=== PATIENT | male | born 1950 | race Caucasian/White ===

== ENCOUNTER 2021-04-22 10:20 | Inpatient (IN) | payer SELFPAY ==
[2021-04-22] VITALS (33 sets, daily range): BP systolic 105–157; BP diastolic 77–114; PULSE 82–106; RESP 11–22; TEMP 36.1–36.4; O2SAT 93–100; BMI 26.3
--- NOTE | ~2021-04-22 | CT_ITS ---
EXAMINATION: CTA chest PE protocol DATE: 04/24/2021 08:18 INDICATION: Shortness of breath, elevated d-dimer.. Abnormal pulmonary perfusion scan TECHNIQUE: Computed tomography angiography (CTA) of the chest was performed with 100 mL Omnipaque-350 intravenous contrast timed to evaluate the pulmonary arteries. Coronal maximum intensity projection 3D-reconstructions were created by the technologist. Automated exposure control and iterative reconst ruction technique were employed. Exam dose: 464.75 mGy-cm total exam DLP. COMPARISON: 04/22/2021 portable AP chest 04/23/2021 pulmonary perfusion scan FINDINGS: There is diagnostic contrast enhancement of the pulmonary arteries and no evidence of bilat eral pulmonary emboli, particularly involving the superior segment of the right lower lobe, with abby tional emboli of the right and left lower lobes. There is cardiomegaly. Coronary atherosclerosis. No pericardial effusion. Moderately large right pleural effusion, mild left pleural effusion. Bilateral compressive atelectasis of the right lower lobe and to a lesser extent left lower lobe. Prominent ascites IMPRESSION: Bilateral pulmonary embolism, involving lower lobes, right greater than left Cardiomegaly, bilateral right greater than left pleural effusions, suggesting congestive heart failur e Prominent ascites Reviewed, dictated and finalized at [facility]. Reviewed, dictated and finalized at location A. IMPRESSION: Bilateral pulmonary embolism, involving lower lobes, right greater than left Cardiomegaly, bilateral right greater than left pleural effusions, suggesting c ongestive heart failure Prominent ascites
--- NOTE | ~2021-04-22 | NM_ITS ---
EXAMINATION: NM pulmonary perfusion DATE: 04/23/2021 09:42 INDICATION: Shortness of breath. Pleural effusion. Elevated d-dimer. TECHNIQUE: 5.3 mCi Tc-99m MAA by intravenous route. Scintigraphic images of the chest were obtained. COMPARISON: Chest radiograph dated 04/22/2021 FINDINGS: Or large perfusion defects with corresponding airspace opacities involving the right middle and lower lobes. There are moderate sized perfusion defects involving the apical posterior and anterior segmen ts of the left upper lobe and the superior segment of the left lower lobe and small perfusion defects at the apical segment of the right upper lobe and the inferior segment of the lingula, all without c orresponding airspace opacities. IMPRESSION: 1. High probability for pulmonary embolism. Reviewed, dictated and finalized at location [facility].
--- NOTE | ~2021-04-22 | XR_ITS ---
XR chest 1V portable DATE: 04/22/2021 11:02 INDICATION: Shortness of breath. Lower extremity edema. History of hypertension. TECHNIQUE: Portable upright AP chest on 04/22/2021 at 1056 hours COMPARISON: None FINDINGS: There is cardiomegaly. Aortic arch calcification. There is pulmonary vascular congestion and redistribution. There is moderately large right pleural ef fusion, including some fluid in the minor fissure. There is infiltrate in the right mid and particula rly right lower lung field and to a lesser extent left lower lung. Differential diagnosis for the inf iltrates include pulmonary edema, pneumonia. Lung mass can't be excluded on the right. Diffuse osteopenia. Osteoarthritic change at the glenohumeral joints. IMPRESSION: Cardiomegaly, congestive changes including moderately large right pleural effusion Bilateral infiltrates, particularly in the right mid and lower lung zones; differential diagnosis inc ludes pulmonary edema, pneumonia. Pulmonary mass lesion is not excluded. Reviewed, dictated and finalized at location A. IMPRESSION: Cardiomegaly, congestive changes including moderately large right p leural effusion Bilateral infiltrates, particularly in the right mid and lower lung zones; diff erential diagnosis includes pulmonary edema, pneumonia. Pulmonary mass lesion i s not excluded.
--- NOTE | ~2021-04-22 | XR_ITS ---
XR chest 2V DATE: 04/24/2021 08:29 INDICATION: Congestive heart failure, pulmonary embolism TECHNIQUE: PA and lateral views COMPARISON: 05/04/2021 CTA chest 04/22/2021 portable AP chest FINDINGS: Cardiomegaly. Aortic calcification and mild unfolding. Pulmonary vascular redistribution suggests mild pulmonary venous hypertension. Moderate right pleural effusion. There is infiltrate and/atelectasis in the right mid and both lower lung zones, right greater than le ft. Osteoarthritic changes at the glenohumeral joints. Diffuse osteopenia. IMPRESSION: Cardiomegaly, mild pulmonary vascular congestion, moderately large right pleural effusion and bilateral right greater than left infiltrates; little interval change since 04/22/2021 Reviewed, dictated and finalized at location A. IMPRESSION: Cardiomegaly, mild pulmonary vascular congestion, moderately large right pleural effusion and bilateral right greater than left infiltrates; littl e interval change since 04/22/2021
--- NOTE | ~2021-04-22 | US_ITS ---
EXAMINATION: US venous doppler [facility] DATE: 04/22/2021 14:34 INDICATION: Lower limb edema. TECHNIQUE: Grayscale ultrasound images without and with compression and Doppler ultrasound images of the bilateral lower extremity veins were obtained. COMPARISON: None. FINDINGS: The visualized portions of right common femoral vein, profunda (deep) femoral vein, femoral vein, pop liteal vein, peroneal veins, posterior tibial veins, and greater saphenous vein outflow are patent. The visualized portions of left common femoral vein, profunda femoral vein, femoral vein, popliteal v ein, peroneal veins, posterior tibial veins, and greater saphenous vein outflow are patent. IMPRESSION: 1. No deep venous thrombosis. Reviewed, dictated and finalized at location A.
--- NOTE | ~2021-04-22 | XR_ITS ---
EXAMINATION: [id number] DATE: 04/22/2021 14:33 INDICATION: Right pleural effusion status post thoracentesis. TECHNIQUE: Frontal and lateral views of the chest were obtained. COMPARISON: Chest single view at 10:[address] abdomen and pelvis 04/22/2021. FINDINGS: There are moderate-sized right and small left pleural effusions. There are airspace opaciti es in right mid and lower lung zones and at left lung base, likely atelectasis. Calcified bilateral l ferdinand nodules are consistent with old granulomatous disease. No pneumothorax. Cardiomegaly is noted. IMPRESSION: 1. Moderate-sized right and small left pleural effusions. 2. Cardiomegaly. Reviewed, dictated and finalized at location A.
--- NOTE | ~2021-04-22 | US_ITS ---
EXAMINATION: US paracentesis abd w/image DATE: 04/22/2021 14:54 INDICATION: Ascites. TECHNIQUE: The procedure and its risks, benefits, and alternatives were discussed with the patient. P otential risks discussed included bleeding and infection. The skin was prepped and draped in sterile fashion. 1% lidocaine was used for local anesthesia. Under ultrasound guidance, a 5 Fr catheter with trochar was advanced into the ascites in the left lower quadrant. Fluid was aspirated. The catheter w as removed, and a dressing was applied. There were no immediate complications. FINDINGS: Ultrasound images demonstrate ascites and the catheter within the fluid. IMPRESSION: 1. Successful ultrasound-guided paracentesis yielding 4000 mL of clear, yellow fluid. Reviewed, dictated and finalized at location A.
--- NOTE | ~2021-04-22 | US_ITS ---
EXAMINATION: US thoracentesis DATE: 04/22/2021 14:54 INDICATION: pleural effusion TECHNIQUE: The procedure and its risks, benefits, and alternatives were discussed with the patient. P otential risks discussed included bleeding, infection, and pneumothorax. The patient understood the r isks and agreed to proceed. The skin was prepped and draped in sterile fashion. 1% lidocaine was used for local anesthesia. Under ultrasound guidance, a 5 Fr catheter with trochar was advanced into the right pleural effusion. Fluid was aspirated. The catheter was removed, and a dressing was applied. Th ere were no immediate complications. FINDINGS: Ultrasound images demonstrate a right pleural effusion and the catheter within the fluid. IMPRESSION: 1. Successful ultrasound-guided thoracentesis yielding 1000 mL of clear, yellow fluid. Reviewed, dictated and finalized at location A. IMPRESSION: 1. Successful ultrasound-guided thoracentesis yielding 1000 mL of clear, yello w fluid.
--- NOTE | ~2021-04-22 | CT_ITS ---
EXAMINATION: CT abdomen pelvis wo con DATE: 04/22/2021 12:09 INDICATION: Flank pain. Fluid retention. TECHNIQUE: Computed tomography (CT) of the abdomen and pelvis was performed without intravenous contr ast. Automated exposure control and iterative reconstruction technique were employed. Exam dose: 118 4.05 mGy-cm total exam DLP. COMPARISON: None. FINDINGS: Cardiomegaly. There is extensive coronary artery calcification. There is calcification at t he aortic valve. There is moderately large right pleural effusion with prominent compressive atelectasis of the right lower lobe. There is mild left pleural effusion and mild atelectasis in the left lower lobe. There is very prominent ascites. There is suggestion of surface nodularity of liver but there is cons iderable streak artifact from the upper extremities overlying the abdomen, limiting soft tissue detai l. No obvious space-occupying mass lesion of the liver, spleen, pancreas, and adrenal glands is noted on this limited noncontrast examination. Multiple bilateral renal cysts are noted, measuring up to 4.3 cm on the right 4.9 cm on the left. No ureteral calculus or hydroureteronephrosis. There is suggestion of an up to 2.5 cm wide saccular aneurysm of the infrarenal abdominal aorta. There is a prominent amount of fecal material in the colon. No bowel obstruction or intraperitoneal f ree air is detected. There is extensive subcutaneous edema of the abdominal and pelvic lloyd. No suspicious osteolytic or osteoblastic lesions are noted. IMPRESSION: Bilateral pleural effusions, moderately large on the right, mild on the left, with assoc iated compressive atelectasis involving particularly right lower lobe Cardiomegaly Edema of the abdominal and pelvic lloyd Severe ascites Suggestion of hepatic surface nodularity, cirrhosis; examination is limited by artifact from the uppe r extremities and lack of IV contrast material Bilateral renal cysts Probable 2.5 cm wide saccular infrarenal abdominal aortic aneurysm Reviewed, dictated and finalized at [facility]. Reviewed, dictated and finalized at location A. IMPRESSION: Bilateral pleural effusions, moderately large on the right, mild o n the left, with associated compressive atelectasis involving particularly righ t lower lobe Cardiomegaly Edema of the abdominal and pelvic lloyd Severe ascites Suggestion of hepatic surface nodularity, cirrhosis; examination is limited by artifact from the upper extremities and lack of IV contrast material Bilateral renal cysts Probable 2.5 cm wide saccular infrarenal abdominal aortic aneurysm
--- NOTE | ~2021-04-22 | US_ITS ---
US abdomen limited DATE: 04/24/2021 08:33 INDICATION: Ascites TECHNIQUE: Real-time imaging of liver, pancreas, gallbladder areas COMPARISON: 04/22/2021 CT abdomen pelvis FINDINGS: Prominent ascites is noted. Surface nodularity of the liver suggests cirrhosis. There is pulsatile portal venous waveform with flow reversal, likely secondary to cirrhosis with vasc ular arterioportal shunting; other less likely causes include tricuspid regurgitation, right-sided co ngestive heart failure No gallstones are evident. The common bile duct measures 4 mm, normal. Negative sonographic Bryan's sign. Approximately 3 x 3.5 cm upper pole right renal cyst. IMPRESSION: Cirrhosis and prominent ascites Reviewed, dictated and finalized at [facility]. Reviewed, dictated and finalized at location A.
--- NOTE | 2021-04-22 10:36 | ECG_ITS ---
Measurements Intervals [place] Rate: 97 P: 27 WV: 170 QRS: -80 QRSD: 142 T: 99 QT: 379 QTc: 484 Interpretive Statements SINUS OR ECTOPIC ATRIAL RHYTHM VENTRICULAR BIGEMINY LEFT BUNDLE BRANCH BLOCK BASELINE WANDER- V5-V6 ABNORMAL ECG Electronically Signed On 04-22-2021 10:57:48 CDT by Neftali German D.O.
[2021-04-22 11:04] LABS: Basophils Absolute Auto 0.1 K/mm3 (0.0-0.1); Basophils Percent Auto 1.3 % (0.2-1.2); Eosinophils Absolute Auto 0.1 K/mm3 (0-0.3); Eosinophils Percent Auto 1.3 % (0-4.4); Hematocrit 50.6 % (42.0-52.0); Hemoglobin 17.2 g/dL (14.0-18.0); Immature Granulocyte Absolute 0.02 K/mm3 (0.00-0.031); Immature Granulocyte Percent A 0.3 % (0-0.5); Lymphocytes Absolute Auto 1.14 K/mm3 (0.9-3.2); Lymphocytes Percent Auto 16.5 % (18.3-44.2); Mean Corpuscular Hemoglobin 34.1 pg (26-34); Mean Corpuscular Volume 100.4 fl (80-100); Mean Platelet Volume 11.1 fl (7.4-10.4); Monocytes Absolute Auto 0.8 K/mm3 (0.1-0.6); Monocytes Percent Auto 11.8 % (2.6-8.5); Neutrophils Absolute Auto 4.7 K/mm3 (1.3-6.7); Neutrophils Percent Auto 68.8 % (45.5-73.1); Platelet Count Result 156 k/mm3 (150-375); Red Blood Count 5.04 M/mm3 (4.6-6.20); Red Cell Distribution Width 19.8 % (11.5-14.5); White Blood Count 6.9 K/mm3 (4.5-10.0)
[2021-04-22 11:16] LABS: INR 1.1; Prothrombin Time 14.1 Seconds (11.1-14.7)
[2021-04-22 11:18] LABS: Alanine Aminotransferase 19 U/L (4-50); Albumin Level 4.5 g/dL (3.5-5.1); Alkaline Phosphatase 140 U/L (38-126); Anion Gap 11 mmol/L (8-16); Aspartate Amino Transferase 57 U/L (17-59); Bilirubin,Total 2.9 mg/dL (0.2-1.3); Blood Urea Nitrogen 39 mg/dL (9-20); Calcium 9.1 mg/dL (8.4-10.2); Carbon Dioxide 23 mmol/L (22-30); Chloride 103 mmol/L (98-107); Estimated CRCL calculation 48 ml/min; Estimated Glomerular Filt Rate 54; Glucose 115 mg/dL (65-110); Potassium 4.6 mmol/L (3.4-5.0); Sodium 137 mmol/L (137-145)
[2021-04-22 11:29] LABS: NT Pro B Type Natriuretic Pept 22500 pg/mL (5-100); Troponin I 0.035 ng/mL (0.000-0.034)
[2021-04-22 11:32] LABS: D Dimer 3.86 ug/mL (<0.48)
[2021-04-22 11:58] LABS: Lactic Acid Reflex 2.4 mmol/L (0.7-2.1)
--- NOTE | 2021-04-22 12:58 | ED.GENADULT ---
HPI - General Adult General Chief complaint: Shortness of Breath/Dyspnea Stated complaint: fluid retention/sob Time Seen by Provider: 04/22/21 10:36 Source: patient Mode of arrival: ambulatory Limitations: no limitations History of Present Illness HPI narrative: 71-year-old with a history of hypertension, CHF was sent from his primary doctor's office with shortness of breath, leg swelling for past few weeks. Patient states that he has seen Dr. Morales for the first time and he was later referred him to the ER. He denied any chest pain, fever or chills he denies any alcohol abuse or hepatitis in the past. Onset (ago): week(s) Location: lower extremity (Swelling) Pain Consistency: constant Relieving factors: none Associated symptoms: shortness of breath Treatments prior to arrival: none Related Data Home Medications Medication Instructions Recorded Confirmed furosemide 80 mg tablet 80 mg PO QAM 04/22/21 Allergies Allergy/AdvReac Type Severity Reaction Status Date / Time Iodinated Contrast Media Allergy Hypertensio Verified 04/22/21 10:56 n Review of Systems Review of Systems: All systems reviewed & are unremarkable except as noted in HPI and below Constitutional: Constitutional: Reports no additional constitutional complaints Eyes: Eyes: Reports no additional eye complaints ENT: Reports system reviewed and no additional complaints, except as documented Cardiovascular: Cardiovascular: Reports as per HPI Respiratory: Respiratory: Reports as per HPI Gastrointestinal: Gastrointestinal: Reports no additional gastrointestinal complaints Genitourinary: Genitourinary: Reports no additional male genitourinary complaints Musculoskeletal: Musculoskeletal: Reports as per HPI Neurologic: Reports system reviewed and no additional complaints, except as documented Psychiatric: Psychiatric: Reports no additional psychiatric complaints Endocrine: Endocrine: Reports no additional endocrine complaints [facility] Past Medical History Medical History Allergies Hypertension Surgical History Surgical History H/O hernia repair (2) Family History Family History Father Cancer Diabetes mellitus Mother Cancer Heart disease Sibling Cancer Grandparent Cancer Social History Social History Smoking status: Never smoker Alcohol intake: never Substance use: never Exam Narrative: GENERAL: Ill-appearing, well-nourished, and in no acute distress. HEAD: Normocephalic, atraumatic. EYES: PERRLA and EOMI. ENT: Nares clear, no rhinorrhea or epistaxis. Mucous membranes moist. NECK: Supple. CHEST: Decreased air entry both lung kiser more so on the right. No wheeze HEART: Regular rate and rhythm. No murmur heard. Normal peripheral pulses. ABDOMEN: Soft, distended as umbilical hernia. EXTREMITIES: Normal range of motion. 3+ edema bilateral SKIN: Warm, dry, no rash. NEURO: No focal deficits. Alert and oriented x3. PSYCH: Normal mood and affect. Course Course Emergency Course: Patient comfortably lying on bed with no discomfort informed him about his lab work, CT findings. Discussed with hospitalist and cardiology. Will admit him to the hospital get thoracentesis and paracentesis. Patient agreeable with plan. Vital Signs Vital signs: Vital Signs Temperature 36.4 C 04/22/21 10:36 Pulse Rate 96 04/22/21 10:36 Respiratory Rate 20 04/22/21 10:36 Blood Pressure 157/114 H 04/22/21 10:36 Pulse Oximetry 99 04/22/21 10:36 Temperature 36.4 C 04/22/21 10:36 Pulse Rate 98 04/22/21 11:01 Respiratory Rate 15 04/22/21 11:01 Blood Pressure 129/108 H 04/22/21 11:01 Pulse Oximetry 100 04/22/21 11:00 Medical Decision Making Differential Diagnosis Differential Diagn
[2021-04-22 14:27] LABS: pH Pleural Fluid 7.467 (7.210-7.500)
[2021-04-22 14:39] LABS: Reflex Lactic Acid Yes or No Add Lactic
--- NOTE | 2021-04-22 14:54 | PM.IMHP ---
H&P: HPI History of Present Illness Date/Time: 04/22/21 14:54 this is a 71-year-old male patient who went to Dr. Severino's office today to establish care and review labs. The patient stated that he was short of breath with exertion and that he had a lot of water weight on him. That his legs swelled up and he just did have any energy. The patient has no previous history of heart disease or congestive heart failure. The patient stated that he is on a water pill any only takes it when he feels as though he needs it. He took it yesterday. Patient has been having problems for the last few weeks with the swelling and shortness of breath. The patient was referred to the emergency room by his primary care doctor. His venous Doppler was negative for any deep vein thrombosis. Chest x-ray was read as moderate size right and small left pleural effusions. Cardiomegaly. Abdominal pelvis CT was read as severe ascites. Edema of the abdominal and pelvic lloyd. Cardiomegaly. Bilateral pleural effusions, moderately large on the right mild on the left with associated compressive atelectasis falling particularly right lower lobe. The patient denies any alcohol abuse or hepatitis in the past. He has no known liver disease. The patient stated that he he has white coat syndrome and that his blood pressures typically only elevated when he comes to the office or the hospital. He does not take medication for his blood pressure. His D-dimer was found to be 3.86. Troponin 0.035. BNP 33744. Lactic acid 2.4. Total bilirubin 2.9. The patient was given Lasix IV push in the emergency room. The patient was admitted to observation status on the date of service of 04/22/2021. Chief Complaint: Weakness and shortness of breath Review of Systems Review of Systems: All systems reviewed & are unremarkable except as noted in HPI and below Constitutional: Constitutional: Reports as per HPI and Reports no additional constitutional complaints Eyes: Eyes: Reports as per HPI and Reports no additional eye complaints ENT: Reports system reviewed and no additional complaints, except as documented and Reports Normal hearing present Cardiovascular: Cardiovascular: Reports no additional cardiovascular complaints Respiratory: Respiratory: Reports no additional respiratory complaints and Reports no additional respiratory complaints Gastrointestinal: Gastrointestinal: Reports as per HPI and Reports no additional gastrointestinal complaints Musculoskeletal: Musculoskeletal: Reports no additional musculoskeletal complaints Integumentary/Breasts: Skin/Breast: Reports system reviewed and no additional complaints, except as docu and Reports as per HPI Neurologic: Reports system reviewed and no additional complaints, except as documented, Reports as per HPI and Reports Normal hearing present Psychiatric: Psychiatric: Reports no additional psychiatric complaints and Reports as per HPI Endocrine: Endocrine: Reports no additional endocrine complaints Hematologic/Lymphatic: Hematologic/Lymphatic: Reports no additional hematologic/lymphatic complaints Allergic/Immunologic: Allergic/Immunologic: Reports no additional allergic/immunologic complaints [facility] Past Medical History Medical History Allergies Hypertension Surgical History Surgical History H/O hernia repair (2) Family History Family History (Updated 04/22/21 @ 15:15 by Estefania Ruff NP) Father Cancer Bladder cancer Diabetes mellitus Mother Cancer Breast cancer Heart disease Sibling Carcinoma of colon Grandparent Cancer Social History Social History (Updated 04/22/21 @ 15:16 by Estefania Ruff NP) Social History: The patient lives home alone and his brother visits him a most every day. He is single never and does not have any children. 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
[2021-04-22] MEDS: FUROSEMIDE INJ 40 MG/4 ML VIAL IV PUSH ×2 (14:57→23:36)
[2021-04-22 15:33] LABS: Lactic Acid 1.9 mmol/L (0.7-2.1)
[2021-04-22 15:34] LABS: Bilirubin,Total 3.1 mg/dL (0.2-1.3); Cholesterol 221 mg/dL (0-200); Triglycerides 169 mg/dL (<150)
[2021-04-22 16:18] LABS: Troponin I 0.027 ng/mL (0.000-0.034)
[2021-04-22 16:29] LABS: Appearance Peritoneal Fluid Hazy (Clear); Color Peritoneal Fluid Yellow (Colorless); Lymphocytes Peritoneal Fluid 38 %; Neutrophils Peritoneal Fluid 14 % (0-25); Nucleated Cells Peritoneal Flu 155 /uL (0-500); RBC Peritoneal Fluid 2065 /uL (0-100000); Source Peritoneal Fluid Peritoneal Fluid
[2021-04-22 16:30] LABS: Macrophages Peritoneal Fluid 15 %; Mesothelial Cells Peritoneal Fluid 3 %; Monocytes Peritoneal Fluid 30 %
[2021-04-22 17:18] LABS: Appearance Pleural Fluid Hazy (Clear); Color Pleural Fluid Yellow (Colorless); Lymphocytes Pleural Fluid 52 %; Macrophages Pleural Fluid 1 %; Monocytes Pleural Fluid 44 %; Neutrophils Pleural Fluid 3 % (0-25); Nucleated Cell Pleural Fluid 116 /uL (0-1000); Pleural fluid source Pleural fluid; RBC Pleural Fluid 48 /uL (0-0)
--- NOTE | 2021-04-22 19:30 | PC.NURSE ---
Assumed care of pt at this time. Pt alert and upright on stretcher, no requests. Pt states he is feeling much better than when he arrived. Pt updated on POC.
[2021-04-22 20:40] LABS: Albumin Level 4.9 g/dL (3.5-5.1)
[2021-04-22 20:54] LABS: Troponin I 0.034 ng/mL (0.000-0.034)
--- NOTE | 2021-04-22 22:24 | ADMGEN ---
This patient, Biju Gimenez, was admitted to Medical Room 252-. Patient/family oriented to hospital policies and general routines including ID bracelet, bed and alarms, visiting hours, pain management, procedures, bathroom and other care routines, personal items, smoking policy, room service/diet, and visiting hours. Information on how to activate the Rapid Response Team has been discussed. Patient/Family are encouraged to report perceived risks to care and to ask questions if they do not understand what they are told or what they should do.
[2021-04-23] VITALS (10 sets, daily range): BP systolic 100–120; BP diastolic 61–83; PULSE 76–100; RESP 16–22; TEMP 36.1–36.8; O2SAT 95–100
[2021-04-23 05:38] LABS: Basophils Absolute Auto 0.1 K/mm3 (0.0-0.1); Basophils Percent Auto 1.5 % (0.2-1.2); Eosinophils Absolute Auto 0.1 K/mm3 (0-0.3); Hematocrit 42.4 % (42.0-52.0); Hemoglobin 14.7 g/dL (14.0-18.0); Immature Granulocyte Absolute 0.02 K/mm3 (0.00-0.031); Immature Granulocyte Percent A 0.4 % (0-0.5); Lymphocytes Absolute Auto 0.83 K/mm3 (0.9-3.2); Lymphocytes Percent Auto 15.3 % (18.3-44.2); Mean Corpuscular HGB Conc 34.7 g/dl (32-36); Mean Corpuscular Hemoglobin 33.9 pg (26-34); Mean Corpuscular Volume 97.7 fl (80-100); Mean Platelet Volume 10.3 fl (7.4-10.4); Monocytes Absolute Auto 0.8 K/mm3 (0.1-0.6); Monocytes Percent Auto 15.2 % (2.6-8.5); Neutrophils Absolute Auto 3.6 K/mm3 (1.3-6.7); Neutrophils Percent Auto 65.6 % (45.5-73.1); Platelet Count Result 107 k/mm3 (150-375); Red Blood Count 4.34 M/mm3 (4.6-6.20); Red Cell Distribution Width 18.5 % (11.5-14.5); White Blood Count 5.4 K/mm3 (4.5-10.0)
[2021-04-23 05:53] LABS: Alanine Aminotransferase 13 U/L (4-50); Albumin Level 3.3 g/dL (3.5-5.1); Alkaline Phosphatase 98 U/L (38-126); Anion Gap 5 mmol/L (8-16); Aspartate Amino Transferase 34 U/L (17-59); Bilirubin,Total 2.7 mg/dL (0.2-1.3); Blood Urea Nitrogen 38 mg/dL (9-20); Calcium 8.7 mg/dL (8.4-10.2); Carbon Dioxide 29 mmol/L (22-30); Chloride 103 mmol/L (98-107); Estimated CRCL calculation 49 ml/min; Estimated Glomerular Filt Rate 54; Glucose 81 mg/dL (65-110); Lipase 90 U/L (23-300); Magnesium 2.3 mg/dL (1.6-2.3); Potassium 3.8 mmol/L (3.4-5.0); Sodium 137 mmol/L (137-145)
--- NOTE | 2021-04-23 06:00 | ECHO_ITS ---
Patient Info Name: Biju Gimenez Age: 71 years : 1950 Gender: Male Ht: 71 in Wt: 188 lbs BSA: 2.08 m2 HR: 98 bpm BP: 102 / 61 mmHg Heart Rhythm: Sinus Rhythm Technical Quality: Excellent Exam Date: 04/23/2021 1:39 PM Exam Location: [facility] Card Pulmonary Patient Status: Inpatient Admit Date: 04/23/2021 Staff Ordering Physician: Oscar Greene MD Instrumentation Manager: Wilma Adame RDCS Attending Provider: Luis Irene MD Exam Type: CA echo dop color flow w con Study Info Indications - chf Complete two-dimensional, color flow and Doppler transthoracic echocardiogram is performed with contrast to opacify the left ventricle and to improve the deliniation of the left ventricle endocardial borders. Contrast/Agitated Saline Contrast/Ag. Saline: Definity Amount: 1.00 ml Administered By: Marion Arreguin RN Existing IV Access: Yes IV Access Condition: patent with no signs of infiltration Summary 1. Left ventricular chamber dimension is mildly enlarged. 2. Left ventricular systolic function is severely reduced, estimated at 20-25%. 3. There is mildly increased left ventricular wall thickness. 4. The left ventricular diastolic function is grade III diastolic dysfunction. 5. The apical septum, apical inferior wall, basal inferolateral wall, and mid inferolateral wall are akinetic. 6. The anterior wall, anterolateral wall, anteroseptal wall, basal inferior wall, mid inferior wall, basal inferoseptal, and mid inferoseptal are hypokinetic. 7. The apical cap is dyskinetic. 8. Right ventricular chamber dimension is severely enlarged. 9. Right ventricular systolic function is reduced. 10. Left atrial chamber dimension is moderately enlarged. 11. Right atrial chamber dimension is severely enlarged. 12. There is mild aortic valve calcification. 13. There is moderate mitral valve regurgitation. 14. The mitral valve annulus is mildly calcified. 15. There is moderate to severe tricuspid valve regurgitation. 16. Moderate pulmonary hypertension, estimated pulmonary arterial systolic pressure is 52 mmHg. 17. There is mild pulmonic regurgitation. 18. D shaped septum in both systole and diastole consistent with RV pressure and volume overload. Left Ventricle Left ventricular chamber dimension is mildly enlarged. Left ventricular systolic function is severely reduced, estimated at 20-25%. There is mildly increased left ventricular wall thickness. The left ventricular diastolic function is grade III diastolic dysfunction. The apical septum, apical inferior wall, basal inferolateral wall, and mid inferolateral wall are akinetic. The anterior wall, anterolateral wall, anteroseptal wall, basal inferior wall, mid inferior wall, basal inferoseptal, and mid inferoseptal are hypokinetic. The apical cap is dyskinetic. Right Ventricle Right ventricular chamber dimension is severely enlarged. Right ventricular systolic function is reduced. Left Atria Left atrial chamber dimension is moderately enlarged. Right Atria Right atrial chamber dimension is severely enlarged. Atrial Septum Intact interatrial septum visualized by color flow imaging. Aortic Valve The aortic valve is trileaflet. There is moderate aortic valve sclerosis. There is no aortic valve stenosis. There is trace aortic valve regurgitation. There is mild aortic valve calcification. Pulmonic Valve The pulmonic valve is normal. There is no pulmonic valve stenosis.
[2021-04-23 06:38] LABS: Hepatitis B Surface Antigen Negative (Negative)
[2021-04-23 06:44] LABS: HAV RESULT Negative (Negative); Hepatitis B Core IgM Result Negative (Negative)
[2021-04-23 06:56] LABS: Hepatitis C Virus Antibody Negative (Negative)
--- NOTE | 2021-04-23 09:01 | PM.CNCAR ---
Assessment and Plan Assessment and plan (1) Congestive heart failure: Qualifiers: Heart failure chronicity: acute Heart failure type: unspecified Qualified Code(s): I50.9 - Heart failure, unspecified Code(s): I50.9 - Heart failure, unspecified Status: Acute Assessment and Plan: New onset and likely systolic in etiology. 2D echocardiogram with Doppler is ordered and will be reviewed. Will initiate low-dose metoprolol succinate 12.5 mg p.o. daily. He does not have much blood pressure work with though. Presumably he will have a reduced ejection fraction. In which case, I would like to add Entresto this will be dependent on his blood pressure. Furosemide 40 mg IV q.12 hours. Potassium chloride 40 mEq p.o. x1 for potassium supplementation today will also be provided. Aspirin 81 mg p.o. daily for presumed CAD. Low-salt diet, intake and outputs to be monitored as well as daily weights. Repeat CXR tomorrow. Will check a ferritin level also (2) Hypertension: Code(s): I10 - Essential (primary) hypertension Status: Acute Assessment and Plan: Currently at goal (3) Ascites: Qualifiers: Ascites type: other type Qualified Code(s): R18.8 - Other ascites Code(s): R18.8 - Other ascites Status: Acute Assessment and Plan: Secondary to heart failure status post paracentesis (4) Abnormal EKG: Code(s): R94.31 - Abnormal electrocardiogram [ECG] [EKG] Status: Acute Assessment and Plan: Concerning for previous inferior myocardial infarction. He will eventually need an ischemic evaluation depending on the above tests. If cardiomyopathy is noted, likely proceed directly to a coronary angiogram History of Present Illness History of Present Illness Consult date/time: 04/23/21 09:01 Requesting physician: Oscar Greene MD Reason For Visit: CHF, Ascites Narrative: Date of service 04/23/2021 Reason for consultation: CHF Ordering provider Dr. Greene History: Patient is a 71-year-old male who recently saw Dr. Severino as he was concerned about low testosterone and need for HGH. However upon meeting him, Dr. Severino became concerned about heart failure. Patient did have blood work drawn showing a BNP of over 22,000 with severe ascites, pleural effusions and edema. Patient states that he has had lower extremity swelling off and on for couple of years. He does take as needed furosemide. Over the past 2-4 weeks so he thinks that this swelling has gotten progressively worse. He also describes worsening shortness of breath, abdominal distension. He also admits to paroxysmal nocturnal dyspnea and occasional palpitations. All of the symptoms worsened over the past few weeks. He denies any syncope, presyncope, chest pain or orthopnea. He did undergo a thoracentesis as well as a paracentesis yesterday. He was started on IV diuretics and he is already feeling much better. EKG is personally reviewed and analyzed and there is concern about inferior infarction, age undetermined. Patient cannot recall a time in which could have had a previous heart attack. Review of Systems Review of Systems: All systems reviewed & are unremarkable except as noted in HPI and below Constitutional: Constitutional: Reports weakness Eyes: Eyes: Denies blurry vision ENT: Reports Normal hearing present Cardiovascular: Cardiovascular: Denies chest pain and Reports leg edema Respiratory: Respiratory: Reports dyspnea and Reports dyspnea on exertion Gastrointestinal: Gastrointestinal: Reports bloating Genitourinary: Genitourinary: Denies dysuria Musculoskeletal: Musculoskeletal: Denies neck pain Integumentary/Breasts: Skin/Breast: Denies dry skin Neurologic: Denies headache(s) Psychiatric: Psychiatric: Denies anxiety Endocrine: Endocrine: Denies fatigue Hematologic/Lymphatic: Hematologic/Lymphatic: Denies easy bleeding Allergic/Immunologic: Allergic/Im
[2021-04-23] MEDS: FUROSEMIDE INJ 40 MG/4 ML VIAL IV PUSH ×2 (10:05→20:54)
[2021-04-23] MEDS: ENOXAPARIN 40 MG/0.4 ML SYRINGE SUB-Q (10:05)
[2021-04-23] MEDS: POTASSIUM CHLORIDE 20 MEQ TABLET 40 MEQ PO (10:06)
[2021-04-23] MEDS: ASPIRIN 81 MG ENTERIC TABLET PO (10:06)
[2021-04-23] MEDS: METOPROLOL SUCCINATE EXT REL 12.5 MG TABCR PO (10:10)
--- NOTE | 2021-04-23 13:12 | PM.IMPN ---
Progress Note: A&P Assessment and Plan (1) Elevated d-dimer: Code(s): R79.89 - Other specified abnormal findings of blood chemistry Status: Acute Assessment and Plan: The ultrasound of the lower extremities were negative for DVT. VQ scan with high probability for PE. patient allergic to iodine contrast and hence not able to CT pulmonary PE protocol. patient with no sob, chest pain or tachycardia. noted underlying right pleural effusion. lower extremity doppler are negative for DVT will need to do allergy protocol to perform a CTA. (2) Ascites: Qualifiers: Ascites type: other type Qualified Code(s): R18.8 - Other ascites Code(s): R18.8 - Other ascites Status: Acute Assessment and Plan: Patient's paracentesis per ultrasound yielded 4000 mL of clear yellow fluid. Cytology ordered on the paracentesis fluid. Hepatitis panel negative CT abdomen with cirrhotic liver. no hx of chronic alcoholism (3) Congestive heart failure: Qualifiers: Heart failure chronicity: acute Heart failure type: unspecified Qualified Code(s): I50.9 - Heart failure, unspecified Code(s): I50.9 - Heart failure, unspecified Status: Acute Assessment and Plan: Echo has been ordered. Continue with IV Lasix. Patient has lower extremity edema as well as edema to pleural effusion. Cardiology has been consulted per ED provider. (4) Elevated blood pressure reading: Code(s): R03.0 - Elevated blood-pressure reading, without diagnosis of hypertension Status: Acute Assessment and Plan: P.r.n. hydralazine with parameters (5) Cirrhosis: Code(s): K74.60 - Unspecified cirrhosis of liver Status: Acute Assessment and Plan: new diagnosis consider spironolactone Subjective Date/time seen: 04/23/21 13:12 Interval history: feels better otday. leg swelling has mproving. he still has swellin gin his abdomen. he denies any breathing problem. no chest pain. no fever, chills. he denies any cough. Review of Systems Review of Systems: All systems reviewed & are unremarkable except as noted in HPI and below Exam Narrative: GENERAL: The patient is well developed, not in acute distress HEENT: Nonicteric sclerae, PERRLA, EOMI. Oropharynx clear. Moist mucous membranes. Conjunctivae appear well perfused. CHEST: Chest wall is nontender. HEART: Regular rate and rhythm without murmur, rubs, or gallops LUNGS: decreased breath sounds on right lower lobe, no respiratory distress ABDOMEN: Soft, positive bowel sounds, non-tender, no organomegaly. distended abdomen with ascites, umbilical hernia noted, irritant dermatitis in the periumblical area SKIN: No rash, no excessive bruising, petechiae, or purpura. NEUROLOGIC: Cranial nerves II-XII intact, alert and oriented x 3, no gross motor deficits EXTREMITIES: no cyanosis or clubbing bialea 2+ edema edema right >left Extrem: General: normal exam except as noted and no edema Objective Data Vital Signs Vital Signs: Vital Signs - 24 hr 04/22/21 13:15 04/22/21 14:43 04/22/21 14:51 Temperature Pulse Rate 106 H 95 95 Respiratory Rate 18 14 12 Blood Pressure 136/94 H Pulse Oximetry 100 100 04/22/21 15:03 04/22/21 15:15 04/22/21 15:30 Temperature Pulse Rate 96 95 93 Respiratory Rate 15 17 13 Blood Pressure Pulse Oximetry 04/22/21 15:31 04/22/21 15:45 04/22/21 16:24 Temperature Pulse Rate 95 100 98 Respiratory Rate 11 L 18 17 Blood Pressure 124/96 H Pulse Oximetry 96 97 04/22/21 16:33 04/22/21 16:45 04/22/21 17:26 Temperature Pulse Rate 95 91 95 Respiratory Rate 13 12 12 Blood Pressure Pulse Oximetry 100 100 99 04/22/21 17:30 04/22/21 19:30 04/22/21 21:08 Temperature Pulse Rate 95 96 96 Respiratory Rate 19 15 Blood Pressure 125/95 H Pulse Oximetry 98 98 04/22/21 21:18 04/22/21 22:00 04/22/21 22:25 Temperature 96.9 F L Pulse Rate 97 97 100 Respiratory
[2021-04-23] MEDS: PERFLUTREN LIPID MICROSPHERES 1.5 ML VIAL DILUTED TO 10 ML TOTAL VOLUME IV PUSH (14:20)
[2021-04-23] MEDS: predniSONE 40 MG, predniSONE 10 MG 50 MG PO (18:00)
[2021-04-24] VITALS (12 sets, daily range): BP systolic 90–112; BP diastolic 57–88; PULSE 63–100; RESP 18–21; TEMP 36.2–36.5; O2SAT 94–100
[2021-04-24] MEDS: predniSONE 40 MG, predniSONE 10 MG 50 MG PO ×2 (01:01→07:18)
[2021-04-24 05:43] LABS: Basophils Percent Auto 0.3 % (0.2-1.2); Hematocrit 42.6 % (42.0-52.0); Hemoglobin 15.3 g/dL (14.0-18.0); Immature Granulocyte Absolute 0.01 K/mm3 (0.00-0.031); Immature Granulocyte Percent A 0.3 % (0-0.5); Immature Platelet Fraction Pct 4.7 % (0.9-11.2); Lymphocytes Absolute Auto 0.39 K/mm3 (0.9-3.2); Lymphocytes Percent Auto 9.8 % (18.3-44.2); Mean Corpuscular HGB Conc 35.9 g/dl (32-36); Mean Corpuscular Hemoglobin 34.5 pg (26-34); Mean Corpuscular Volume 96.2 fl (80-100); Mean Platelet Volume 10.9 fl (7.4-10.4); Monocytes Absolute Auto 0.1 K/mm3 (0.1-0.6); Monocytes Percent Auto 1.8 % (2.6-8.5); Neutrophils Absolute Auto 3.5 K/mm3 (1.3-6.7); Neutrophils Percent Auto 87.8 % (45.5-73.1); Platelet Count Result 115 k/mm3 (150-375); Red Blood Count 4.43 M/mm3 (4.6-6.20); Red Cell Distribution Width 18.1 % (11.5-14.5)
[2021-04-24 05:56] LABS: Potassium 4.1 mmol/L (3.4-5.0)
[2021-04-24 05:59] LABS: Alanine Aminotransferase 13 U/L (4-50); Albumin Level 3.2 g/dL (3.5-5.1); Alkaline Phosphatase 96 U/L (38-126); Anion Gap 7 mmol/L (8-16); Aspartate Amino Transferase 32 U/L (17-59); Bilirubin,Total 2.5 mg/dL (0.2-1.3); Blood Urea Nitrogen 39 mg/dL (9-20); Calcium 8.4 mg/dL (8.4-10.2); Carbon Dioxide 26 mmol/L (22-30); Chloride 102 mmol/L (98-107); Estimated CRCL calculation 53 ml/min; Estimated Glomerular Filt Rate 60; Glucose 122 mg/dL (65-110); Sodium 135 mmol/L (137-145)
[2021-04-24] MEDS: diphenhydrAMINE HCl INJ 50 MG/ML VIAL IV PUSH (07:18)
[2021-04-24] MEDS: ENOXAPARIN 40 MG/0.4 ML SYRINGE SUB-Q ×2 (08:45→09:51)
[2021-04-24] MEDS: FUROSEMIDE INJ 40 MG/4 ML VIAL IV PUSH ×2 (08:45→21:25)
[2021-04-24] MEDS: ASPIRIN 81 MG ENTERIC TABLET PO (08:45)
[2021-04-24] MEDS: METOPROLOL SUCCINATE EXT REL 12.5 MG TABCR PO (08:50)
--- NOTE | 2021-04-24 13:06 | PM.IMPN ---
Progress Note: A&P Assessment and Plan (1) Elevated d-dimer: Code(s): R79.89 - Other specified abnormal findings of blood chemistry Status: Acute Assessment and Plan: The ultrasound of the lower extremities were negative for DVT. VQ scan with high probability for PE. patient allergic to iodine contrast and hence not able to CT pulmonary PE protocol. patient with no sob, chest pain or tachycardia. noted underlying right pleural effusion. lower extremity doppler are negative for DVT Performed allergy protocol to undergo CTA which she did this morning. CTA does conforms bilateral pulmonary emboli particularly involving superior segment of right lower lobe with additional emboli of the right and left lower lobe conforming bilateral PE increase Lovenox to 80 mg subQ b.i.d. Will switch to oral anticoagulants warfarin versus NOACs (2) Ascites: Qualifiers: Ascites type: other type Qualified Code(s): R18.8 - Other ascites Code(s): R18.8 - Other ascites Status: Acute Assessment and Plan: Patient's paracentesis per ultrasound yielded 4000 mL of clear yellow fluid. Cytology ordered on the paracentesis fluid. Hepatitis panel negative CT abdomen with cirrhotic liver. no hx of chronic alcoholism Ultrasound abdomen with cirrhotic liver likely related to his underlying tricuspid regurgitation and right-sided congestive heart failure (3) Congestive heart failure: Qualifiers: Heart failure chronicity: acute Heart failure type: unspecified Qualified Code(s): I50.9 - Heart failure, unspecified Code(s): I50.9 - Heart failure, unspecified Status: Acute Assessment and Plan: Echo has been ordered. Continue with IV Lasix. Patient has lower extremity edema as well as edema to pleural effusion. Cardiology has been consulted per ED provider. Cardiology on on board Echocardiogram done 04/23/2021 with ejection fraction 20 to 20/5% left ventricular diastolic function grade 3 diastolic dysfunction apical septum apical inferior wall basal inferolateral wall and mid inferolateral wall akinetic and hypokinetic anterior wall anterolateral wall anteroseptal wall basal inferior wall mid inferior wall basal inferoseptal and mid inferoseptal Apical cap is dyskinetic Right ventricular chamber dimension is severely enlarged Right ventricular systolic function is reduced LA chamber moderately enlarged RA chamber severely enlarged moderate mitral regurgitation moderate to severe tricuspid regurgitation moderate pulmonary hypertension PA SP 52 mm Hg Continue with diuresis Lasix 40 mg IV b.i.d. May add Entresto and beta-glen Add spironolactone limited due to lowish blood pressure (4) Elevated blood pressure reading: Code(s): R03.0 - Elevated blood-pressure reading, without diagnosis of hypertension Status: Acute Assessment and Plan: P.r.n. hydralazine with parameters This is much better now diuresis (5) Cirrhosis: Code(s): K74.60 - Unspecified cirrhosis of liver Status: Acute Assessment and Plan: new diagnosis Add small dose of spironolactone 12.5 mg today Continue on Lasix 40 mg IV b.i.d. still significant ascites and lower extremity edema noted (6) Bilateral pulmonary embolism: Code(s): I26.99 - Other pulmonary embolism without acute cor pulmonale Status: Acute Assessment and Plan: Start Lovenox 80 mg subQ b.i.d. (7) Cardiomyopathy: Code(s): I42.9 - Cardiomyopathy, unspecified Status: Acute Assessment and Plan: Ischemic versus nonischemic Cardiology on board await their recommendation Consider Entresto/beta-glen however limited with his lowest blood pressure today Subjective Date/time seen: 04/24/21 13:06 Interval history: He denies any new complaints states his leg swelling is still the same and also reports abdominal swelling. He denies any shortness of breath or chest pain no fever or chills denies any
--- NOTE | 2021-04-24 14:09 | PM.PNCARD ---
Progress Note: A&P Assessment and Plan (1) Cardiomyopathy: Code(s): I42.9 - Cardiomyopathy, unspecified Status: Acute Assessment and Plan: New diagnosis severe LV systolic dysfunction. Optimization medical management limited due to relative hypotension. Will continue to monitor blood pressure trends and push as tolerated. Discussed at length, all questions answered to his satisfaction. Explained very complicated nature of his current medical status. He understands. Continue telemetry. Explained patient at high risk for potential life-threatening or fatal ventricular arrhythmias as well. Possible transient atrial flutter with variable AV block telemetry although patient appears to be in sinus rhythm at present. Will continue to monitor. Nonetheless, patient will require systemic anticoagulation. Explained unless a new acute or concerning issue arises prefer to manage him medically as tolerated with angiography in the future after maintain uninterrupted systemic anticoagulation to treat his acute bilateral pulmonary emboli. (2) Congestive heart failure: Qualifiers: Heart failure chronicity: acute Heart failure type: unspecified Qualified Code(s): I50.9 - Heart failure, unspecified Code(s): I50.9 - Heart failure, unspecified Status: Acute Assessment and Plan: New onset severe LV systolic dysfunction EF 20-25% with akinesis of the apical septum, apical inferior, basal inferolateral and mid inferolateral wall. Blood pressure marginal, relatively hypotensive. I would hold off on spironolactone although I agree should be started as tolerated and is indicated. I would favor initiation of low-dose Entresto 1st if his BP will allow. We should be cautious not to excessively lower his blood pressure so much that we have to hold IV diuresis as he remains significantly volume overloaded. Furosemide 40 mg IV q.12 hours. Monitor and replete electrolytes closely. Aspirin 81 mg p.o. daily for presumed CAD. Low-salt diet, intake and outputs to be monitored as well as daily weights. (3) Bilateral pulmonary embolism: Code(s): I26.99 - Other pulmonary embolism without acute cor pulmonale Status: Acute Assessment and Plan: Diagnosed by CT angiogram after I had noted contrast allergy protocol. Continue systemic anticoagulation without interruption. Discussed at length. Given multiple bilateral pulmonary emboli and stabilization medical therapy I do not feel it is in his best interest to interrupt anticoagulation on an acute basis to proceed with coronary angiography at this time. Prefer to continue treatment with supportive care with angiography in the near future. Patient verbalized understanding and agreed with plan of care. All questions answered to his satisfaction. I explained the potential life-threatening nature of pulmonary embolism as well as severe LV dysfunction and the differences both contributing to very complicated clinical picture. I also explained that one issue was not the primary cause of the other. (4) Hypertension: Code(s): I10 - Essential (primary) hypertension Status: Acute Assessment and Plan: Patient now relatively hypotensive limiting aggressive medical optimization at this time. This was also discussed at length with the patient. (5) Ascites: Qualifiers: Ascites type: other type Qualified Code(s): R18.8 - Other ascites Code(s): R18.8 - Other ascites Status: Acute Assessment and Plan: Secondary to heart failure status post paracentesis (6) Abnormal EKG: Code(s): R94.31 - Abnormal electrocardiogram [ECG] [EKG] Status: Acute Assessment and Plan: Concerning for previous inferior myocardial infarction. He will eventually need an ischemic evaluation depending on the above tests. Coronary angiography indeed advised with the above caveats. See above. Subjective Date/time seen: Date
[2021-04-24] MEDS: ENOXAPARIN 80 MG/0.8 ML SYRINGE SUB-Q (21:22)
[2021-04-25] VITALS (13 sets, daily range): BP systolic 90–134; BP diastolic 66–83; PULSE 67–98; RESP 14–21; TEMP 36.1–36.9; O2SAT 98–100
[2021-04-25 05:46] LABS: Basophils Percent Auto 0.1 % (0.2-1.2); Hematocrit 40.8 % (42.0-52.0); Hemoglobin 14.4 g/dL (14.0-18.0); Immature Granulocyte Absolute 0.05 K/mm3 (0.00-0.031); Immature Granulocyte Percent A 0.6 % (0-0.5); Immature Platelet Fraction Pct 5.2 % (0.9-11.2); Lymphocytes Absolute Auto 0.56 K/mm3 (0.9-3.2); Lymphocytes Percent Auto 6.7 % (18.3-44.2); Mean Corpuscular HGB Conc 35.3 g/dl (32-36); Mean Corpuscular Hemoglobin 34.2 pg (26-34); Mean Corpuscular Volume 96.9 fl (80-100); Mean Platelet Volume 10.9 fl (7.4-10.4); Monocytes Absolute Auto 0.8 K/mm3 (0.1-0.6); Monocytes Percent Auto 9.5 % (2.6-8.5); Neutrophils Percent Auto 83.1 % (45.5-73.1); Platelet Count Result 125 k/mm3 (150-375); Red Blood Count 4.21 M/mm3 (4.6-6.20); White Blood Count 8.4 K/mm3 (4.5-10.0)
[2021-04-25 05:52] LABS: Alanine Aminotransferase 15 U/L (4-50); Albumin Level 3.2 g/dL (3.5-5.1); Alkaline Phosphatase 83 U/L (38-126); Anion Gap 7 mmol/L (8-16); Aspartate Amino Transferase 36 U/L (17-59); Bilirubin,Total 1.9 mg/dL (0.2-1.3); Blood Urea Nitrogen 49 mg/dL (9-20); Calcium 8.5 mg/dL (8.4-10.2); Carbon Dioxide 26 mmol/L (22-30); Chloride 101 mmol/L (98-107); Estimated CRCL calculation 53 ml/min; Estimated Glomerular Filt Rate 60; Glucose 111 mg/dL (65-110); Potassium 4.4 mmol/L (3.4-5.0); Sodium 134 mmol/L (137-145)
[2021-04-25] MEDS: METOPROLOL SUCCINATE EXT REL 12.5 MG TABCR PO (08:45)
[2021-04-25] MEDS: ASPIRIN 81 MG ENTERIC TABLET PO (08:45)
[2021-04-25] MEDS: ENOXAPARIN 80 MG/0.8 ML SYRINGE SUB-Q ×2 (08:46→20:22)
[2021-04-25] MEDS: FUROSEMIDE INJ 40 MG/4 ML VIAL IV PUSH ×3 (08:57→22:37)
--- NOTE | 2021-04-25 13:04 | PM.IMPN ---
Progress Note: A&P Assessment and Plan (1) Elevated d-dimer: Code(s): R79.89 - Other specified abnormal findings of blood chemistry Status: Acute Assessment and Plan: The ultrasound of the lower extremities were negative for DVT. VQ scan with high probability for PE. patient allergic to iodine contrast and hence not able to CT pulmonary PE protocol. patient with no sob, chest pain or tachycardia. noted underlying right pleural effusion. lower extremity doppler are negative for DVT Performed allergy protocol to undergo CTA which she did this morning. CTA does conforms bilateral pulmonary emboli particularly involving superior segment of right lower lobe with additional emboli of the right and left lower lobe conforming bilateral PE increase Lovenox to 80 mg subQ b.i.d. Will switch to oral anticoagulants warfarin versus NOACs at discharge (2) Ascites: Qualifiers: Ascites type: other type Qualified Code(s): R18.8 - Other ascites Code(s): R18.8 - Other ascites Status: Acute Assessment and Plan: Patient's paracentesis per ultrasound yielded 4000 mL of clear yellow fluid. Cytology ordered on the paracentesis fluid. Hepatitis panel negative CT abdomen with cirrhotic liver. no hx of chronic alcoholism Ultrasound abdomen with cirrhotic liver likely related to his underlying tricuspid regurgitation and right-sided congestive heart failure (3) Congestive heart failure: Qualifiers: Heart failure chronicity: acute Heart failure type: unspecified Qualified Code(s): I50.9 - Heart failure, unspecified Code(s): I50.9 - Heart failure, unspecified Status: Acute Assessment and Plan: Echo has been ordered. Continue with IV Lasix. Patient has lower extremity edema as well as edema to pleural effusion. Cardiology has been consulted per ED provider. Cardiology on on board Echocardiogram done 04/23/2021 with ejection fraction 20 to 20/5% left ventricular diastolic function grade 3 diastolic dysfunction apical septum apical inferior wall basal inferolateral wall and mid inferolateral wall akinetic and hypokinetic anterior wall anterolateral wall anteroseptal wall basal inferior wall mid inferior wall basal inferoseptal and mid inferoseptal Apical cap is dyskinetic Right ventricular chamber dimension is severely enlarged Right ventricular systolic function is reduced LA chamber moderately enlarged RA chamber severely enlarged moderate mitral regurgitation moderate to severe tricuspid regurgitation moderate pulmonary hypertension PA SP 52 mm Hg Continue with diuresis Lasix 40 mg IV b.i.d. May add Entresto and beta-glen Add spironolactone limited due to lowish blood pressure Blood pressure better today cardiology planning to start low-dose Entresto 1st. (4) Elevated blood pressure reading: Code(s): R03.0 - Elevated blood-pressure reading, without diagnosis of hypertension Status: Acute Assessment and Plan: P.r.n. hydralazine with parameters This is much better now diuresis (5) Cirrhosis: Code(s): K74.60 - Unspecified cirrhosis of liver Status: Acute Assessment and Plan: new diagnosis Add small dose of spironolactone 12.5 mg today Continue on Lasix 40 mg IV b.i.d. still significant ascites and lower extremity edema noted No give some [place] hose for his lower extremity swelling (6) Bilateral pulmonary embolism: Code(s): I26.99 - Other pulmonary embolism without acute cor pulmonale Status: Acute Assessment and Plan: Start Lovenox 80 mg subQ b.i.d. (7) Cardiomyopathy: Code(s): I42.9 - Cardiomyopathy, unspecified Status: Acute Assessment and Plan: Ischemic versus nonischemic Cardiology on board await their recommendation Consider Entresto/beta-glen however limited with his lowest blood pressure today Already on metoprolol small dose Entresto plan by cardiology hopefully today Subjective Date/time
--- NOTE | 2021-04-25 13:23 | ECG_ITS ---
Measurements Intervals Daisy Rate: 87 P: IN: 0 QRS: -74 QRSD: 132 T: 93 QT: 411 QTc: 497 Interpretive Statements ATRIAL FLUTTER/TACHYCARDIA VENTRICULAR PREMATURE COMPLEX LEFT BUNDLE BRANCH BLOCK ABNORMAL ECG Electronically Signed On 04-25-2021 18:20:42 CDT by Neftali German D.O.
--- NOTE | 2021-04-25 13:30 | PM.PNCARD ---
Progress Note: A&P Assessment and Plan (1) Cardiomyopathy: Code(s): I42.9 - Cardiomyopathy, unspecified Status: Acute Assessment and Plan: New diagnosis severe LV systolic dysfunction. Optimization medical management limited due to relative hypotension. Will continue to monitor blood pressure trends and push as tolerated. Discussed at length, all questions answered to his satisfaction. Explained very complicated nature of his current medical status. He understands. Continue telemetry. Explained patient at high risk for potential life-threatening or fatal ventricular arrhythmias as well. Possible transient atrial flutter with variable AV block telemetry although patient appears to be in sinus rhythm at present. Will continue to monitor. Nonetheless, patient will require systemic anticoagulation. Explained unless a new acute or concerning issue arises prefer to manage him medically as tolerated with angiography in the future after maintain uninterrupted systemic anticoagulation to treat his acute bilateral pulmonary emboli. (2) Congestive heart failure: Qualifiers: Heart failure chronicity: acute Heart failure type: unspecified Qualified Code(s): I50.9 - Heart failure, unspecified Code(s): I50.9 - Heart failure, unspecified Status: Acute Assessment and Plan: New onset severe LV systolic dysfunction EF 20-25% with akinesis of the apical septum, apical inferior, basal inferolateral and mid inferolateral wall. Blood pressure marginal, relatively hypotensive. I would hold off on spironolactone although I agree should be started as tolerated and is indicated. I would favor initiation of low-dose Entresto 1st if his BP will allow. We should be cautious not to excessively lower his blood pressure so much that we have to hold IV diuresis as he remains significantly volume overloaded. Furosemide 40 mg IV q.12 hours. Monitor and replete electrolytes closely. Aspirin 81 mg p.o. daily for presumed CAD. Low-salt diet, intake and outputs to be monitored as well as daily weights. Urine output has dropped off not very impressive at this time. Will given additional IV Lasix 40 mg x 1 now. Monitor BP closely accurate input and output. Will obtain 2D echocardiogram. Telemetry on occasions suggestive possible atrial flutter with variable AV block over difficult to ascertain. Clearly sinus rhythm for the most part. (3) Bilateral pulmonary embolism: Code(s): I26.99 - Other pulmonary embolism without acute cor pulmonale Status: Acute Assessment and Plan: Continue systemic anticoagulation without interruption. Discussed at length. Given multiple bilateral pulmonary emboli and stabilization medical therapy I do not feel it is in his best interest to interrupt anticoagulation on an acute basis to proceed with coronary angiography at this time. Transition to oral regimen PE dosing per hospitalist service. (4) Hypertension: Code(s): I10 - Essential (primary) hypertension Status: Acute Assessment and Plan: Patient now relatively hypotensive limiting aggressive medical optimization at this time. This was also discussed at length with the patient. Improved today. Will see how he tolerates additional IV Lasix. Would very much like to initiate spironolactone and Entresto as tolerated. (5) Ascites: Qualifiers: Ascites type: other type Qualified Code(s): R18.8 - Other ascites Code(s): R18.8 - Other ascites Status: Acute Assessment and Plan: Secondary to heart failure status post paracentesis (6) Abnormal EKG: Code(s): R94.31 - Abnormal electrocardiogram [ECG] [EKG] Status: Acute Assessment and Plan: Concerning for previous inferior myocardial infarction. He will eventually need an ischemic evaluation depending on the above tests. Coronary angiography indeed advised with the above caveats. See above. S
[2021-04-25 14:14] LABS: Amylase Peritoneal Fluid 24 U/L
[2021-04-25 14:14] LABS: Amylase, Pleural Fluid 25 U/L
[2021-04-26] VITALS (11 sets, daily range): BP systolic 92–125; BP diastolic 54–98; PULSE 61–101; RESP 16–18; TEMP 36.4–36.6; O2SAT 98–99
[2021-04-26 05:12] LABS: Basophils Percent Auto 0.1 % (0.2-1.2); Eosinophils Percent Auto 0.4 % (0-4.4); Hematocrit 40.2 % (42.0-52.0); Hemoglobin 14.2 g/dL (14.0-18.0); Immature Granulocyte Absolute 0.01 K/mm3 (0.00-0.031); Immature Granulocyte Percent A 0.1 % (0-0.5); Lymphocytes Absolute Auto 0.84 K/mm3 (0.9-3.2); Lymphocytes Percent Auto 12.1 % (18.3-44.2); Mean Corpuscular HGB Conc 35.3 g/dl (32-36); Mean Corpuscular Hemoglobin 34.6 pg (26-34); Mean Platelet Volume 10.4 fl (7.4-10.4); Monocytes Absolute Auto 0.8 K/mm3 (0.1-0.6); Monocytes Percent Auto 12.1 % (2.6-8.5); Neutrophils Absolute Auto 5.2 K/mm3 (1.3-6.7); Neutrophils Percent Auto 75.2 % (45.5-73.1); Platelet Count Result 118 k/mm3 (150-375); Red Cell Distribution Width 18.4 % (11.5-14.5)
[2021-04-26 05:23] LABS: Alanine Aminotransferase 16 U/L (4-50); Albumin Level 3.4 g/dL (3.5-5.1); Alkaline Phosphatase 91 U/L (38-126); Anion Gap 7 mmol/L (8-16); Aspartate Amino Transferase 34 U/L (17-59); Bilirubin,Total 1.8 mg/dL (0.2-1.3); Blood Urea Nitrogen 49 mg/dL (9-20); Calcium 8.4 mg/dL (8.4-10.2); Carbon Dioxide 26 mmol/L (22-30); Chloride 99 mmol/L (98-107); Estimated CRCL calculation 53 ml/min; Estimated Glomerular Filt Rate 60; Glucose 80 mg/dL (65-110); Potassium 3.6 mmol/L (3.4-5.0); Sodium 132 mmol/L (137-145)
[2021-04-26 05:24] LABS: Magnesium 2.1 mg/dL (1.6-2.3)
[2021-04-26] MEDS: METOPROLOL SUCCINATE EXT REL 12.5 MG TABCR PO (08:16)
[2021-04-26] MEDS: ASPIRIN 81 MG ENTERIC TABLET PO (08:17)
[2021-04-26] MEDS: FUROSEMIDE INJ 40 MG/4 ML VIAL IV PUSH ×2 (08:17→20:25)
[2021-04-26] MEDS: ENOXAPARIN 80 MG/0.8 ML SYRINGE SUB-Q (08:17)
--- NOTE | 2021-04-26 09:51 | PM.PNCARD ---
Progress Note: A&P Assessment and Plan (1) Cardiomyopathy: Code(s): I42.9 - Cardiomyopathy, unspecified Status: Acute Assessment and Plan: New diagnosis severe LV systolic dysfunction. Optimization medical management limited due to relative hypotension. Will continue to monitor blood pressure trends and push as tolerated. Discussed at length, all questions answered to his satisfaction. Explained very complicated nature of his current medical status. He understands. Continue telemetry. Explained patient at high risk for potential life-threatening or fatal ventricular arrhythmias as well. Possible transient atrial flutter with variable AV block telemetry although patient appears to be in sinus rhythm at present. Will continue to monitor. Nonetheless, patient will require systemic anticoagulation. Explained unless a new acute or concerning issue arises prefer to manage him medically as tolerated with angiography in the future after maintain uninterrupted systemic anticoagulation to treat his acute bilateral pulmonary emboli. Optimize medical therapy as much as he tolerates. BP somewhat low presenting more aggressive guideline directed medical therapy initiation. (2) Congestive heart failure: Qualifiers: Heart failure chronicity: acute Heart failure type: unspecified Qualified Code(s): I50.9 - Heart failure, unspecified Code(s): I50.9 - Heart failure, unspecified Status: Acute Assessment and Plan: New onset severe LV systolic dysfunction EF 20-25% with akinesis of the apical septum, apical inferior, basal inferolateral and mid inferolateral wall. Blood pressure marginal, relatively hypotensive. I would hold off on spironolactone although I agree should be started as tolerated and is indicated. I would favor initiation of low-dose Entresto 1st if his BP will allow. We should be cautious not to excessively lower his blood pressure so much that we have to hold IV diuresis as he remains significantly volume overloaded. Furosemide 40 mg IV q.12 hours. Monitor and replete electrolytes closely. Aspirin 81 mg p.o. daily for presumed CAD. Low-salt diet, intake and outputs to be monitored as well as daily weights. continue IV diuresis. Input and output not accurately recorded. Discussed with nursing. (3) Atrial flutter, paroxysmal: Code(s): I48.92 - Unspecified atrial flutter Status: Acute Assessment and Plan: New diagnosis, asymptomatic paroxysmal atrial flutter with variable AV block on telemetry and by 12 lead EKG. Continue systemic anticoagulation already initiated due to bilateral pulmonary emboli. Transition to oral anticoagulation per PE dosing. (4) Bilateral pulmonary embolism: Code(s): I26.99 - Other pulmonary embolism without acute cor pulmonale Status: Acute Assessment and Plan: Continue systemic anticoagulation without interruption. Discussed at length. Given multiple bilateral pulmonary emboli and stabilization medical therapy I do not feel it is in his best interest to interrupt anticoagulation on an acute basis to proceed with coronary angiography at this time. Transition to oral regimen PE dosing per hospitalist service. (5) Hypertension: Code(s): I10 - Essential (primary) hypertension Status: Acute Assessment and Plan: Persistent relative hypotension limiting aggressive medical optimization at this time. This was also discussed at length with the patient. Improved today. Will see how he tolerates additional IV Lasix. Would very much like to initiate spironolactone and Entresto as tolerated. (6) Ascites: Qualifiers: Ascites type: other type Qualified Code(s): R18.8 - Other ascites Code(s): R18.8 - Other ascites Status: Acute Assessment and Plan: Secondary to heart failure status post paracentesis (7) Abnormal EKG: Code(s): R94.31 - Abnormal electrocardiogr
--- NOTE | 2021-04-26 15:34 | PM.IMPN ---
Progress Note: A&P Assessment and Plan (1) Elevated d-dimer: Code(s): R79.89 - Other specified abnormal findings of blood chemistry Status: Acute Assessment and Plan: The ultrasound of the lower extremities were negative for DVT. VQ scan with high probability for PE. patient allergic to iodine contrast and hence not able to CT pulmonary PE protocol. patient with no sob, chest pain or tachycardia. noted underlying right pleural effusion. lower extremity doppler are negative for DVT Performed allergy protocol to undergo CTA which she did this morning. CTA does conforms bilateral pulmonary emboli particularly involving superior segment of right lower lobe with additional emboli of the right and left lower lobe conforming bilateral PE increase Lovenox to 80 mg subQ b.i.d. Will switch to oral anticoagulants warfarin versus NOACs at discharge (2) Ascites: Qualifiers: Ascites type: other type Qualified Code(s): R18.8 - Other ascites Code(s): R18.8 - Other ascites Status: Acute Assessment and Plan: Patient's paracentesis per ultrasound yielded 4000 mL of clear yellow fluid. Cytology ordered on the paracentesis fluid. Hepatitis panel negative CT abdomen with cirrhotic liver. no hx of chronic alcoholism Ultrasound abdomen with cirrhotic liver likely related to his underlying tricuspid regurgitation and right-sided congestive heart failure Will order another tap therapeutic the might be at limited of how much we can take out because of his lowish blood pressure Will order albumin after the paracentesis done (3) Congestive heart failure: Qualifiers: Heart failure chronicity: acute Heart failure type: unspecified Qualified Code(s): I50.9 - Heart failure, unspecified Code(s): I50.9 - Heart failure, unspecified Status: Acute Assessment and Plan: Echo has been ordered. Continue with IV Lasix. Patient has lower extremity edema as well as edema to pleural effusion. Cardiology has been consulted per ED provider. Cardiology on on board Echocardiogram done 04/23/2021 with ejection fraction 20 to 20/5% left ventricular diastolic function grade 3 diastolic dysfunction apical septum apical inferior wall basal inferolateral wall and mid inferolateral wall akinetic and hypokinetic anterior wall anterolateral wall anteroseptal wall basal inferior wall mid inferior wall basal inferoseptal and mid inferoseptal Apical cap is dyskinetic Right ventricular chamber dimension is severely enlarged Right ventricular systolic function is reduced LA chamber moderately enlarged RA chamber severely enlarged moderate mitral regurgitation moderate to severe tricuspid regurgitation moderate pulmonary hypertension PA SP 52 mm Hg Continue with diuresis Lasix 40 mg IV b.i.d. May add Entresto and beta-glen Add spironolactone limited due to lowish blood pressure Blood pressure better today cardiology planning to start low-dose Entresto 1st. Life vest as discharge (4) Elevated blood pressure reading: Code(s): R03.0 - Elevated blood-pressure reading, without diagnosis of hypertension Status: Acute Assessment and Plan: P.r.n. hydralazine with parameters This is much better now diuresis (5) Cirrhosis: Code(s): K74.60 - Unspecified cirrhosis of liver Status: Acute Assessment and Plan: new diagnosis Add small dose of spironolactone 12.5 mg today Continue on Lasix 40 mg IV b.i.d. still significant ascites and lower extremity edema noted No give some Getachew hose for his lower extremity swelling (6) Bilateral pulmonary embolism: Code(s): I26.99 - Other pulmonary embolism without acute cor pulmonale Status: Acute Assessment and Plan: Start Lovenox 80 mg subQ b.i.d. (7) Cardiomyopathy: Code(s): I42.9 - Cardiomyopathy, unspecified Status: Acute Assessment and Plan: Ischemic versus nonischemic Cardiology on board await their recomme
[2021-04-26 20:30] LABS: GGT 72 U/L (3-70)
[2021-04-27] VITALS (13 sets, daily range): BP systolic 90–119; BP diastolic 56–86; PULSE 53–101; RESP 16–18; TEMP 36.4–36.9; O2SAT 96–99
[2021-04-27 05:49] LABS: Basophils Percent Auto 0.3 % (0.2-1.2); Eosinophils Absolute Auto 0.1 K/mm3 (0-0.3); Eosinophils Percent Auto 1.2 % (0-4.4); Hematocrit 40.9 % (42.0-52.0); Hemoglobin 14.4 g/dL (14.0-18.0); Immature Granulocyte Absolute 0.02 K/mm3 (0.00-0.031); Immature Granulocyte Percent A 0.3 % (0-0.5); Lymphocytes Absolute Auto 0.91 K/mm3 (0.9-3.2); Lymphocytes Percent Auto 15.9 % (18.3-44.2); Mean Corpuscular HGB Conc 35.2 g/dl (32-36); Mean Corpuscular Hemoglobin 34.3 pg (26-34); Mean Corpuscular Volume 97.4 fl (80-100); Mean Platelet Volume 10.4 fl (7.4-10.4); Monocytes Absolute Auto 0.8 K/mm3 (0.1-0.6); Monocytes Percent Auto 13.1 % (2.6-8.5); Neutrophils Percent Auto 69.2 % (45.5-73.1); Platelet Count Result 118 k/mm3 (150-375); Red Cell Distribution Width 17.5 % (11.5-14.5); White Blood Count 5.7 K/mm3 (4.5-10.0)
[2021-04-27 06:01] LABS: Anion Gap 7 mmol/L (8-16); Blood Urea Nitrogen 48 mg/dL (9-20); Calcium 8.3 mg/dL (8.4-10.2); Carbon Dioxide 28 mmol/L (22-30); Chloride 99 mmol/L (98-107); Estimated CRCL calculation 57 ml/min; Estimated Glomerular Filt Rate > 60; Glucose 77 mg/dL (65-110); Magnesium 2.3 mg/dL (1.6-2.3); Potassium 3.7 mmol/L (3.4-5.0); Sodium 134 mmol/L (137-145)
[2021-04-27 06:03] LABS: INR 1.1; Prothrombin Time 14.2 Seconds (11.1-14.7)
[2021-04-27 06:04] LABS: Partial Thromboplastin Time 38.1 SECONDS (22.3-36.8)
[2021-04-27] MEDS: FUROSEMIDE INJ 40 MG/4 ML VIAL IV PUSH ×2 (08:39→17:20)
--- NOTE | 2021-04-27 10:03 | PM.IMPN ---
Progress Note: A&P Assessment and Plan (1) Elevated d-dimer: Code(s): R79.89 - Other specified abnormal findings of blood chemistry Status: Acute Assessment and Plan: The ultrasound of the lower extremities were negative for DVT. VQ scan with high probability for PE. patient allergic to iodine contrast and hence not able to CT pulmonary PE protocol. patient with no sob, chest pain or tachycardia. noted underlying right pleural effusion. lower extremity doppler are negative for DVT Performed allergy protocol to undergo CTA which she did this morning. CTA does conforms bilateral pulmonary emboli particularly involving superior segment of right lower lobe with additional emboli of the right and left lower lobe conforming bilateral PE increase Lovenox to 80 mg subQ b.i.d. Will switch to oral anticoagulants warfarin versus NOACs at discharge plan to changed to Eliquis at discharge discussed with Dr. Menjivar (2) Ascites: Qualifiers: Ascites type: other type Qualified Code(s): R18.8 - Other ascites Code(s): R18.8 - Other ascites Status: Acute Assessment and Plan: Patient's paracentesis per ultrasound yielded 4000 mL of clear yellow fluid. Cytology ordered on the paracentesis fluid. Hepatitis panel negative CT abdomen with cirrhotic liver. no hx of chronic alcoholism Ultrasound abdomen with cirrhotic liver likely related to his underlying tricuspid regurgitation and right-sided congestive heart failure Will order another tap therapeutic the might be at limited of how much we can take out because of his lowish blood pressure Will order albumin after the paracentesis done If blood pressure stable plan to start spironolactone 12.5 mg daily from morning (3) Congestive heart failure: Qualifiers: Heart failure chronicity: acute Heart failure type: unspecified Qualified Code(s): I50.9 - Heart failure, unspecified Code(s): I50.9 - Heart failure, unspecified Status: Acute Assessment and Plan: Echo has been ordered. Continue with IV Lasix. Patient has lower extremity edema as well as edema to pleural effusion. Cardiology has been consulted per ED provider. Cardiology on on board Echocardiogram done 04/23/2021 with ejection fraction 20 to 20/5% left ventricular diastolic function grade 3 diastolic dysfunction apical septum apical inferior wall basal inferolateral wall and mid inferolateral wall akinetic and hypokinetic anterior wall anterolateral wall anteroseptal wall basal inferior wall mid inferior wall basal inferoseptal and mid inferoseptal Apical cap is dyskinetic Right ventricular chamber dimension is severely enlarged Right ventricular systolic function is reduced LA chamber moderately enlarged RA chamber severely enlarged moderate mitral regurgitation moderate to severe tricuspid regurgitation moderate pulmonary hypertension PA SP 52 mm Hg Continue with diuresis Lasix 40 mg IV b.i.d. May add Entresto and beta-glen Add spironolactone limited due to lowish blood pressure Blood pressure better today cardiology planning to start low-dose Entresto 1st. Has not been able to start since low his blood pressure Life vest as discharge (4) Elevated blood pressure reading: Code(s): R03.0 - Elevated blood-pressure reading, without diagnosis of hypertension Status: Acute Assessment and Plan: P.r.n. hydralazine with parameters This is much better now diuresis (5) Cirrhosis: Code(s): K74.60 - Unspecified cirrhosis of liver Status: Acute Assessment and Plan: new diagnosis Add small dose of spironolactone 12.5 mg today Continue on Lasix 40 mg IV b.i.d. still significant ascites and lower extremity edema noted No give some Getachew hose for his lower extremity swelling (6) Bilateral pulmonary embolism: Code(s): I26.99 - Other pulmonary embolism without acute cor pulmonale Status: Acute Assessment and Plan: Started on Lovenox 80
--- NOTE | 2021-04-27 10:24 | PM.PNCARD ---
Progress Note: A&P Assessment and Plan (1) Cardiomyopathy: Code(s): I42.9 - Cardiomyopathy, unspecified <ARASH Rodney - Last Filed: 04/27/21 11:38> Status: Acute <ARASH Rodney - Last Filed: 04/27/21 11:38> Assessment and Plan: New diagnosis severe LV systolic dysfunction. Optimization medical management limited due to relative hypotension. Will continue to monitor blood pressure trends and push as tolerated. Continue telemetry. Discussed the potential for life-threatening arrhythmias due to his severely reduced EF. Talked to him about LifeVest. He states that he would not be interested in permanent ICD but is open to considering LifeVest. Wants some time to think about it before making a decision. Possible transient atrial flutter with variable AV block telemetry although patient appears to be in sinus rhythm at present. Will continue to monitor. Nonetheless, patient will require systemic anticoagulation. No plan to pursue invasive ischemic work up at this time due to need for anticoagulation for PE's. Optimize medical therapy as much as he tolerates. BP somewhat low presenting more aggressive guideline directed medical therapy initiation. <ARASH Rodney - Last Filed: 04/27/21 11:38> (2) Congestive heart failure: Qualifiers: Heart failure chronicity: acute Heart failure type: unspecified Qualified Code(s): I50.9 - Heart failure, unspecified <ARASH Rodney - Last Filed: 04/27/21 11:38> Code(s): I50.9 - Heart failure, unspecified <ARASH Rodney - Last Filed: 04/27/21 11:38> Status: Acute <ARASH Rodney - Last Filed: 04/27/21 11:38> Assessment and Plan: New onset severe LV systolic dysfunction EF 20-25% with akinesis of the apical septum, apical inferior, basal inferolateral and mid inferolateral wall. Blood pressure marginal, relatively hypotensive. Spironolactone restarted today. Will add very low dose Entresto (06/28) and monitor blood pressure response. Continue Furosemide 40 mg IV q.12 hours - shift to oral furosemide tomorrow with the intent of discharge in the next 1-2 days. His lower extremity edema has resolved at this point. Monitor and replete electrolytes closely. Aspirin 81 mg p.o. daily for presumed CAD. Low-salt diet, intake and outputs to be monitored as well as daily weights. continue IV diuresis. Input and output not accurately recorded. Discussed with nursing. <ARASH Rodney - Last Filed: 04/27/21 11:38> (3) Atrial flutter, paroxysmal: Code(s): I48.92 - Unspecified atrial flutter <ARASH Rodney - Last Filed: 04/27/21 11:38> Status: Acute <ARASH Rodney - Last Filed: 04/27/21 11:38> Assessment and Plan: New diagnosis, asymptomatic paroxysmal atrial flutter with variable AV block on telemetry and by 12 lead EKG. Continue systemic anticoagulation already initiated due to bilateral pulmonary emboli. Transition to oral anticoagulation per PE dosing. <ARASH Rodney - Last Filed: 04/27/21 11:38> (4) Bilateral pulmonary embolism: Code(s): I26.99 - Other pulmonary embolism without acute cor pulmonale <ARASH Rodney - Last Filed: 04/27/21 11:38> Status: Acute <ARASH Rodney - Last Filed: 04/27/21 11:38> Assessment and Plan: Continue systemic anticoagulation without interruption. Discussed at length. Given multiple bilateral pulmonary emboli and stabilization medical therapy I do not feel it is in his best interest to interrupt anticoagulation on an acute basis to proceed with coronary angiography at this time. Transition to oral regimen PE dosing per hospitalist service. <ARASH Rodney - Last Filed: 04/27/21 11:38> (5) Hypertension: Code(s): I10 - Essential (primary) hypertension <ARASH Rodney - Last Filed: 04/27/21 11:38
[2021-04-27] MEDS: ASPIRIN 81 MG ENTERIC TABLET PO (11:57)
[2021-04-27] MEDS: SPIRONOLACTONE 12.5 MG TABLET PO (11:58)
[2021-04-27] MEDS: ENOXAPARIN 100 MG/ML SYRINGE 85 MG SUB-Q (11:59)
[2021-04-27 14:10] LABS: Albumin Pleural Fluid 1.2 g/dL
[2021-04-27 16:30] LABS: Glucose Peritoneal Fluid 107 mg/dL; LDH Peritoneal Fluid 90 U/L (<63)
[2021-04-27 16:31] LABS: Glucose Pleural Fluid 105 mg/dL
[2021-04-27 16:31] LABS: Total Protein Peritoneal Fluid 3.2 g/dL
[2021-04-27] MEDS: SACUBITRIL/VALSARTAN 24-26 MG TABLET 0.5 TAB PO (20:35)
[2021-04-27] MEDS: MELATONIN 3 MG TABLET PO (20:35)
[2021-04-27 21:07] LABS: Albumin Peritoneal Fluid 1.9 g/dL
[2021-04-27] MEDS: ENOXAPARIN 80 MG/0.8 ML SYRINGE SUB-Q (23:57)
[2021-04-28] VITALS (12 sets, daily range): BP systolic 96–120; BP diastolic 54–67; PULSE 65–99; RESP 16–17; TEMP 36.1–36.6; O2SAT 94–99
[2021-04-28 05:41] LABS: Basophils Percent Auto 0.8 % (0.2-1.2); Eosinophils Absolute Auto 0.2 K/mm3 (0-0.3); Hematocrit 39.4 % (42.0-52.0); Hemoglobin 14.3 g/dL (14.0-18.0); Immature Granulocyte Absolute 0.02 K/mm3 (0.00-0.031); Immature Granulocyte Percent A 0.4 % (0-0.5); Lymphocytes Absolute Auto 0.86 K/mm3 (0.9-3.2); Mean Corpuscular HGB Conc 36.3 g/dl (32-36); Mean Corpuscular Hemoglobin 35.1 pg (26-34); Mean Corpuscular Volume 96.8 fl (80-100); Mean Platelet Volume 10.1 fl (7.4-10.4); Monocytes Absolute Auto 0.7 K/mm3 (0.1-0.6); Monocytes Percent Auto 13.4 % (2.6-8.5); Neutrophils Absolute Auto 3.3 K/mm3 (1.3-6.7); Neutrophils Percent Auto 65.4 % (45.5-73.1); Platelet Count Result 102 k/mm3 (150-375); Red Blood Count 4.07 M/mm3 (4.6-6.20); Red Cell Distribution Width 17.1 % (11.5-14.5); White Blood Count 5.1 K/mm3 (4.5-10.0)
[2021-04-28 05:52] LABS: Anion Gap 4 mmol/L (8-16); Blood Urea Nitrogen 42 mg/dL (9-20); Calcium 7.9 mg/dL (8.4-10.2); Carbon Dioxide 30 mmol/L (22-30); Chloride 100 mmol/L (98-107); Estimated CRCL calculation 57 ml/min; Estimated Glomerular Filt Rate > 60; Glucose 81 mg/dL (65-110); Potassium 3.5 mmol/L (3.4-5.0); Sodium 134 mmol/L (137-145)
[2021-04-28] MEDS: FUROSEMIDE INJ 40 MG/4 ML VIAL IV PUSH (08:04)
[2021-04-28] MEDS: SACUBITRIL/VALSARTAN 24-26 MG TABLET 0.5 TAB PO (08:05)
[2021-04-28] MEDS: ASPIRIN 81 MG ENTERIC TABLET PO (08:06)
[2021-04-28] MEDS: SPIRONOLACTONE 12.5 MG TABLET PO (08:19)
--- NOTE | 2021-04-28 08:36 | PM.IMPN ---
Progress Note: A&P Assessment and Plan (1) Bilateral pulmonary embolism: Code(s): I26.99 - Other pulmonary embolism without acute cor pulmonale Status: Acute Assessment and Plan: Started on Lovenox 80 mg subQ b.i.d. (2) Cirrhosis: Code(s): K74.60 - Unspecified cirrhosis of liver Status: Acute Assessment and Plan: new diagnosis Add small dose of spironolactone 12.5 mg today Continue on Lasix 40 mg IV b.i.d. still significant ascites and lower extremity edema noted No give some Getachew hose for his lower extremity swelling (3) Congestive heart failure: Qualifiers: Heart failure chronicity: acute Heart failure type: unspecified Qualified Code(s): I50.9 - Heart failure, unspecified Code(s): I50.9 - Heart failure, unspecified Status: Acute Assessment and Plan: Echo has been ordered. Continue with IV Lasix. Patient has lower extremity edema as well as edema to pleural effusion. Cardiology has been consulted per ED provider. Cardiology on on board Echocardiogram done 04/23/2021 with ejection fraction 20 to 20/5% left ventricular diastolic function grade 3 diastolic dysfunction apical septum apical inferior wall basal inferolateral wall and mid inferolateral wall akinetic and hypokinetic anterior wall anterolateral wall anteroseptal wall basal inferior wall mid inferior wall basal inferoseptal and mid inferoseptal Apical cap is dyskinetic Right ventricular chamber dimension is severely enlarged Right ventricular systolic function is reduced LA chamber moderately enlarged RA chamber severely enlarged moderate mitral regurgitation moderate to severe tricuspid regurgitation moderate pulmonary hypertension PA SP 52 mm Hg Continue with diuresis Lasix 40 mg IV b.i.d. May add Entresto and beta-glen Add spironolactone limited due to lowish blood pressure Blood pressure better today cardiology planning to start low-dose Entresto 1st. Has not been able to start since low his blood pressure Life vest as discharge (4) Ascites: Qualifiers: Ascites type: other type Qualified Code(s): R18.8 - Other ascites Code(s): R18.8 - Other ascites Status: Acute Assessment and Plan: Patient's paracentesis per ultrasound yielded 4000 mL of clear yellow fluid. Cytology ordered on the paracentesis fluid. Hepatitis panel negative CT abdomen with cirrhotic liver. no hx of chronic alcoholism Ultrasound abdomen with cirrhotic liver likely related to his underlying tricuspid regurgitation and right-sided congestive heart failure Will order another tap therapeutic the might be at limited of how much we can take out because of his lowish blood pressure Will order albumin after the paracentesis done If blood pressure stable plan to start spironolactone 12.5 mg daily from morning (5) Elevated blood pressure reading: Code(s): R03.0 - Elevated blood-pressure reading, without diagnosis of hypertension Status: Acute Assessment and Plan: P.r.n. hydralazine with parameters This is much better now diuresis (6) Cardiomyopathy: Code(s): I42.9 - Cardiomyopathy, unspecified Status: Acute Assessment and Plan: Ischemic versus nonischemic Cardiology on board await their recommendation Consider Entresto/beta-glen however limited with his lowest blood pressure today Already on metoprolol small dose Entresto plan by cardiology hopefully Additional Plan Pulmonary Embolism: Continue Lovenox. HFrEF: 20-25, new onset, echo showing akinesis of apical septum, apical inferior, basal inferolateral and mid inferolateral wall. Deferring cath for the time being given AC for PE. Pulm edema and bilateral effusions on CXR. 40 BID lasix. Cards discussed AICD with him, however he is not interested, will dicsuss this again today. Open to LifeVest - however only short term option. Continue Entresto, 12.5 Toprol and 12.5 Spironolactone per cards, and appreciate any additional r
[2021-04-28] MEDS: METOPROLOL SUCCINATE EXT REL 12.5 MG TABCR PO (09:11)
[2021-04-28] MEDS: ENOXAPARIN 80 MG/0.8 ML SYRINGE SUB-Q (11:05)
--- NOTE | 2021-04-28 12:32 | PM.PNCARD ---
Progress Note: A&P Additional Plan 71-year-old man with: Newly diagnosed dilated cardiomyopathy. He is not in overt left-sided failure at this time and appears to be largely euvolemic. I am going to stop his IV furosemide and switch him to oral Lasix 40 mg daily to start with. He also has been placed on metoprolol low dose of Entresto and spironolactone. I will also switch his anticoagulation from Lovenox to Xarelto starting this evening. He is pulmonary emboli are relatively small but will require outpatient anticoagulation. This gentleman does not wish to pursue a life vest evaluation and hopefully there for the next 24 hours or so he should be stable enough for discharge. When he is discharged plans for follow-up in our office with my partner, Dr. Duran will be arranged. Jonas Rodriguez MD [facility] Subjective Date/time seen: Date of service: 04/28/21 12:32 Interval history: Follow-up visit in this 71-year-old man with: Newly diagnosed dilated cardiomyopathy with low ejection fraction. Patient presented with volume overload and pleural effusions. He is asymptomatic today states he feels well and is hoping to be discharged relatively soon. Still receiving intravenous furosemide as well as subcu Lovenox for anticoagulation. He has decided against a Life Vest device. Had a long discussion with the patient about risk for sudden /arrhythmias with low ejection fraction. He understands this. Exam Const: General: comfortable and no acute distress Other: Pleasant tall gentleman no distress HENMT: Mouth: Yes dry mucous membranes Eyes: Sclera: sclerae normal Pupils: Equal, round and reactive pupils present Neck: Neck: supple and no JVD Resp: Effort & Inspection: normal respiratory effort Other: Slight dullness at the left base otherwise no rales rhonchi or wheezing Cardio: Rate: regular rate Rhythm: regular rhythm GI: GI Palp: Yes Soft to palpation Auscultation: normal bowel sounds Skin: General skin exam: normal color Neuro: Cognition (Neuro): normal cognition Extrem: Other: Lower extremities are wrapped and knee-high compression hose Objective Data Vital Signs Vital Signs: Vital Signs - 24 hr 04/27/21 14:00 04/27/21 16:00 04/27/21 18:00 Temperature 36.9 C 36.4 C L Pulse Rate 91 75 92 Respiratory Rate 16 16 Blood Pressure 95/56 L 90/63 L Pulse Oximetry 98 98 04/27/21 19:11 04/27/21 20:00 04/27/21 20:16 Temperature 36.6 C Pulse Rate 101 H 99 96 Respiratory Rate 18 18 Blood Pressure 119/86 Pulse Oximetry 99 99 04/27/21 23:25 04/28/21 00:00 04/28/21 04:00 Temperature 36.4 C L Pulse Rate 83 93 65 Respiratory Rate 17 Blood Pressure 108/73 Pulse Oximetry 96 04/28/21 04:13 04/28/21 07:54 04/28/21 09:11 Temperature 36.6 C Pulse Rate 68 97 92 Respiratory Rate 17 Blood Pressure 100/58 L 108/62 Pulse Oximetry 94 04/28/21 10:20 Temperature 36.1 C L Pulse Rate 82 Respiratory Rate 16 Blood Pressure 100/56 L Pulse Oximetry 96 Intake/Output Intake/Output: Intake & Output 04/25/21 04/26/21 04/27/21 04/28/21 23:59 23:59 23:59 23:59 Intake Total 1300 1980 1030 950 Output Total 1825 2650 3250 900 Balance -525 -670 -2220 50 Meds/Results Medications: Active Medications Generic Name Dose Route Start Last Admin Trade Name Freq PRN Reason Stop Dose Admin Acetaminophen 650 mg 04/22/21 12:46 Acetaminophen 325 Mg Tablet PO Q4H PRN Mild Pain (1-3) or Fever Aspirin 81 mg 04/23/21 09:00 04/28/21 08:06 Aspirin 81 Mg Enteric Tablet PO 81 mg QAM PHILIP Administration Furosemide 40 mg 04/29/21 09:00 Furosemide 40 Mg Tablet PO DAILY PHILIP Melatonin 3 mg 04/27/21 21:00 04/27/21 20:35 Melatonin 3 Mg Tablet PO 3 mg HS PHILIP Administration Metoprolol Succinate 12.5 mg 04/23/21 09:15 04/28/21 09:11 Metoprolol Succinate Ext Rel 12.5 Mg Tabcr PO 12.5 mg QAM PHILIP Administration Ondansetron HCl 4 mg
[2021-04-28] MEDS: MELATONIN 3 MG TABLET PO (21:01)
[2021-04-28] MEDS: RIVAROXABAN 20 MG TABLET PO (21:01)
[2021-04-28] MEDS: SACUBITRIL/VALSARTAN 12-13 MG TABLET 1 TAB PO (22:33)
[2021-04-29] VITALS (14 sets, daily range): BP systolic 86–110; BP diastolic 52–81; PULSE 65–99; RESP 16; TEMP 36.1–36.8; O2SAT 96–100
[2021-04-29 05:54] LABS: Basophils Absolute Auto 0.1 K/mm3 (0.0-0.1); Basophils Percent Auto 0.9 % (0.2-1.2); Eosinophils Absolute Auto 0.2 K/mm3 (0-0.3); Eosinophils Percent Auto 4.2 % (0-4.4); Hematocrit 44.4 % (42.0-52.0); Hemoglobin 15.5 g/dL (14.0-18.0); Immature Granulocyte Absolute 0.02 K/mm3 (0.00-0.031); Immature Granulocyte Percent A 0.4 % (0-0.5); Lymphocytes Absolute Auto 1.05 K/mm3 (0.9-3.2); Lymphocytes Percent Auto 18.6 % (18.3-44.2); Mean Corpuscular HGB Conc 34.9 g/dl (32-36); Mean Corpuscular Hemoglobin 33.9 pg (26-34); Mean Corpuscular Volume 97.2 fl (80-100); Mean Platelet Volume 10.4 fl (7.4-10.4); Monocytes Absolute Auto 0.8 K/mm3 (0.1-0.6); Monocytes Percent Auto 13.8 % (2.6-8.5); Neutrophils Absolute Auto 3.5 K/mm3 (1.3-6.7); Neutrophils Percent Auto 62.1 % (45.5-73.1); Platelet Count Result 123 k/mm3 (150-375); Red Blood Count 4.57 M/mm3 (4.6-6.20); Red Cell Distribution Width 17.3 % (11.5-14.5); White Blood Count 5.7 K/mm3 (4.5-10.0)
[2021-04-29 06:11] LABS: Alanine Aminotransferase 22 U/L (4-50); Albumin Level 3.2 g/dL (3.5-5.1); Alkaline Phosphatase 112 U/L (38-126); Anion Gap 4 mmol/L (8-16); Aspartate Amino Transferase 45 U/L (17-59); Bilirubin,Total 2.2 mg/dL (0.2-1.3); Blood Urea Nitrogen 34 mg/dL (9-20); Calcium 8.1 mg/dL (8.4-10.2); Carbon Dioxide 31 mmol/L (22-30); Chloride 99 mmol/L (98-107); Estimated CRCL calculation 57 ml/min; Estimated Glomerular Filt Rate > 60; Glucose 79 mg/dL (65-110); Magnesium 2.3 mg/dL (1.6-2.3); Phosphorus 2.9 mg/dL (2.5-4.5); Potassium 3.6 mmol/L (3.4-5.0); Sodium 134 mmol/L (137-145)
[2021-04-29] MEDS: FUROSEMIDE 40 MG TABLET PO (08:02)
[2021-04-29] MEDS: METOPROLOL SUCCINATE EXT REL 12.5 MG TABCR PO (08:02)
[2021-04-29] MEDS: ASPIRIN 81 MG ENTERIC TABLET PO (08:02)
[2021-04-29] MEDS: SPIRONOLACTONE 12.5 MG TABLET PO (08:03)
[2021-04-29] MEDS: SACUBITRIL/VALSARTAN 12-13 MG TABLET 1 TAB PO (08:07)
--- NOTE | 2021-04-29 08:08 | PM.IMPN ---
Progress Note: A&P Assessment and Plan (1) Bilateral pulmonary embolism: Code(s): I26.99 - Other pulmonary embolism without acute cor pulmonale Status: Acute Assessment and Plan: Started on Lovenox 80 mg subQ b.i.d. (2) Cirrhosis: Code(s): K74.60 - Unspecified cirrhosis of liver Status: Acute Assessment and Plan: new diagnosis spironolactone 12.5 mg Continue on Lasix 40 po No give some [place] hose for his lower extremity swelling (3) Congestive heart failure: Qualifiers: Heart failure chronicity: acute Heart failure type: unspecified Qualified Code(s): I50.9 - Heart failure, unspecified Code(s): I50.9 - Heart failure, unspecified Status: Acute Assessment and Plan: HFrEF: 20-25, new onset, echo showing akinesis of apical septum, apical inferior, basal inferolateral and mid inferolateral wall. Deferring cath for the time being given AC for PE. Pulm edema and bilateral effusions on CXR. 40 BID lasix. Cards discussed AICD with him, however he is not interested, will dicsuss this again today. Open to LifeVest - however only short term option. Continue Entresto, 12.5 Toprol and 12.5 Spironolactone per cards, and appreciate any additional recommendations. (4) Ascites: Qualifiers: Ascites type: other type Qualified Code(s): R18.8 - Other ascites Code(s): R18.8 - Other ascites Status: Acute Assessment and Plan: Liver Cirrhosis with Ascites: s/p 4L paracentesis, clear yellow fluid. Does not appear to be SBP at the moment. Final cultures pending. Hepatitis panel negative. Continue Spironolactone. Needs outpt f/up for full eval incl cancer screening, endoscopy, risk stratification, etc. Etiology unclear - no family history, no alcoholism, hepatitis panel negative, no pbc s/x, maybe secondary to passive chronic congestion from poorly controlled CHF? (5) Cardiomyopathy: Code(s): I42.9 - Cardiomyopathy, unspecified Status: Acute Additional Plan Switched to PO lasix yesterday and Xarelto. BP dropped to SBP in 80s earlier today a few hours after starting medications. Hold pm lasix. Metoprolol and spironolactone held. Keep an eye on BP throughout day. Close outpatient with Cardiology, for now anticipate outpatient regimen to be Toprol, Spironolactone, Entresto. Lengthy discussion with him yesterday but pretty adamantly opposed to LifeVest and [place]. Potentially interested in Cath down the road, but has had reaction years ago to contrast dye, but not clear if this was true allergy. Time Spent With Patient Time with patient: less than 15 minutes Subjective Date/time seen: 04/29/21 08:08 resting comfortably breathing at or near baseline swelling greatly improved in LE Review of Systems Review of Systems: All systems reviewed & are unremarkable except as noted in HPI and below Exam Const: General: no acute distress Neck: Neck: no JVD Resp: Effort & Inspection: normal respiratory effort Auscultation: clear to auscultation bilaterally Cardio: Rate: regular rate Rhythm: regular rhythm GI: GI Palp: Yes Soft to palpation and No Tenderness to palpation present (GI) Objective Data Vital Signs Vital Signs: Vital Signs - 24 hr 04/28/21 09:11 04/28/21 10:20 04/28/21 14:35 Temperature 97.0 F L 97.7 F Pulse Rate 92 82 66 Respiratory Rate 16 16 Blood Pressure 100/56 L 120/58 L Pulse Oximetry 96 97 04/28/21 16:00 04/28/21 18:00 04/28/21 20:00 Temperature 97.2 F L Pulse Rate 91 76 99 Respiratory Rate 16 Blood Pressure 98/54 L Pulse Oximetry 97 04/28/21 21:07 04/29/21 00:00 04/29/21 00:43 Temperature 97.8 F 97.3 F L Pulse Rate 68 96 95 Respiratory Rate 16 16 Blood Pressure 96/67 L 99/67 L Pulse Oximetry 99 97 04/29/21 04:00 04/29/21 05:02 04/29/21 07:56 Temperature 97.3 F L Pulse Rate 65 95 98 Respiratory Rate 16 Blood Pressure 104/63 110/62 Pulse Oximetry 96 04/29/21 08:
--- NOTE | 2021-04-29 09:45 | PM.PNCARD ---
Progress Note: A&P Assessment and Plan (1) Cardiomyopathy: Code(s): I42.9 - Cardiomyopathy, unspecified <ARASH Rodney - Last Filed: 04/30/21 13:49> Status: Acute <ARASH Rodney - Last Filed: 04/30/21 13:49> Assessment and Plan: New diagnosis severe LV systolic dysfunction. Optimization of medical management limited due to relative hypotension. Will continue to optimize GDMT as an outpatient as BP tolerates. Discussed the potential for life-threatening arrhythmias due to his severely reduced EF. He has decided against a LifeVest. He understands the risks associated with declining LifeVest. <ARASH Rodney - Last Filed: 04/30/21 13:49> (2) Congestive heart failure: Qualifiers: Heart failure chronicity: acute Heart failure type: unspecified Qualified Code(s): I50.9 - Heart failure, unspecified <ARASH Rodney - Last Filed: 04/30/21 13:49> Code(s): I50.9 - Heart failure, unspecified <ARASH Rodney - Last Filed: 04/30/21 13:49> Status: Acute <ARASH Rodney - Last Filed: 04/30/21 13:49> Assessment and Plan: New onset severe LV systolic dysfunction EF 20-25% with akinesis of the apical septum, apical inferior, basal inferolateral and mid inferolateral wall. Blood pressure marginal, relatively hypotensive. Continue spironolactone, continue Entresto, increase furosemide to 40 mg b.i.d. and given additional 20 mg furosemide IV now - He has bilateral lower extremity edema this morning worse on the right leg extending up to his thigh. Low-salt diet, intake and outputs to be monitored as well as daily weights. <ARASH Rodney - Last Filed: 04/30/21 13:49> (3) Atrial flutter, paroxysmal: Code(s): I48.92 - Unspecified atrial flutter <ARASH Rodney - Last Filed: 04/30/21 13:49> Status: Acute <ARASH Rodney - Last Filed: 04/30/21 13:49> Assessment and Plan: New diagnosis, asymptomatic paroxysmal atrial flutter with variable AV block on telemetry and by 12 lead EKG. Continue systemic anticoagulation already initiated due to bilateral pulmonary emboli. Transition to oral anticoagulation per PE dosing. <ARASH Rodney - Last Filed: 04/30/21 13:49> (4) Bilateral pulmonary embolism: Code(s): I26.99 - Other pulmonary embolism without acute cor pulmonale <ARASH Rodney - Last Filed: 04/30/21 13:49> Status: Acute <ARASH Rodney - Last Filed: 04/30/21 13:49> Assessment and Plan: Continue systemic anticoagulation without interruption. Discussed at length. Given multiple bilateral pulmonary emboli and stabilization medical therapy I do not feel it is in his best interest to interrupt anticoagulation on an acute basis to proceed with coronary angiography at this time. Transition to oral regimen PE dosing per hospitalist service. <ARASH Rodney - Last Filed: 04/30/21 13:49> (5) Hypertension: Code(s): I10 - Essential (primary) hypertension <ARASH Rodney - Last Filed: 04/30/21 13:49> Status: Acute <ARASH Rodney - Last Filed: 04/30/21 13:49> Assessment and Plan: Persistent relative hypotension limiting aggressive medical optimization at this time. <ARASH Rodney - Last Filed: 04/30/21 13:49> (6) Ascites: Qualifiers: Ascites type: other type Qualified Code(s): R18.8 - Other ascites <ARASH Rodney - Last Filed: 04/30/21 13:49> Code(s): R18.8 - Other ascites <ARASH Rodney - Last Filed: 04/30/21 13:49> Status: Acute <ARASH Rodney - Last Filed: 04/30/21 13:49> Assessment and Plan: Secondary to heart failure status post paracentesis <Crystal Jhaveri APN-C - Last Filed: 04/30/21 13:49> (7) Abnormal EKG: Code(s): R94.31 - Abnormal electro
[2021-04-29] MEDS: RIVAROXABAN 20 MG TABLET PO (16:15)
[2021-04-29] MEDS: MELATONIN 3 MG TABLET PO (20:22)
[2021-04-30] VITALS (8 sets, daily range): BP systolic 100–110; BP diastolic 58–62; PULSE 64–99; RESP 16; TEMP 36.2–36.8; O2SAT 96–100
[2021-04-30 06:41] LABS: Basophils Absolute Auto 0.1 K/mm3 (0.0-0.1); Basophils Percent Auto 0.9 % (0.2-1.2); Eosinophils Absolute Auto 0.3 K/mm3 (0-0.3); Eosinophils Percent Auto 4.9 % (0-4.4); Hematocrit 41.5 % (42.0-52.0); Hemoglobin 14.7 g/dL (14.0-18.0); Immature Granulocyte Absolute 0.02 K/mm3 (0.00-0.031); Immature Granulocyte Percent A 0.4 % (0-0.5); Lymphocytes Absolute Auto 0.83 K/mm3 (0.9-3.2); Lymphocytes Percent Auto 15.6 % (18.3-44.2); Mean Corpuscular HGB Conc 35.4 g/dl (32-36); Mean Corpuscular Hemoglobin 33.7 pg (26-34); Mean Corpuscular Volume 95.2 fl (80-100); Mean Platelet Volume 10.6 fl (7.4-10.4); Monocytes Absolute Auto 0.8 K/mm3 (0.1-0.6); Monocytes Percent Auto 14.8 % (2.6-8.5); Neutrophils Absolute Auto 3.4 K/mm3 (1.3-6.7); Neutrophils Percent Auto 63.4 % (45.5-73.1); Platelet Count Result 123 k/mm3 (150-375); Red Blood Count 4.36 M/mm3 (4.6-6.20); White Blood Count 5.3 K/mm3 (4.5-10.0)
[2021-04-30 06:47] LABS: Alanine Aminotransferase 25 U/L (4-50); Alkaline Phosphatase 96 U/L (38-126); Anion Gap 6 mmol/L (8-16); Aspartate Amino Transferase 49 U/L (17-59); Bilirubin,Total 2.2 mg/dL (0.2-1.3); Blood Urea Nitrogen 30 mg/dL (9-20); Calcium 7.9 mg/dL (8.4-10.2); Carbon Dioxide 29 mmol/L (22-30); Chloride 99 mmol/L (98-107); Estimated CRCL calculation 63 ml/min; Estimated Glomerular Filt Rate > 60; Glucose 73 mg/dL (65-110); Magnesium 2.3 mg/dL (1.6-2.3); Phosphorus 2.9 mg/dL (2.5-4.5); Potassium 3.7 mmol/L (3.4-5.0); Sodium 134 mmol/L (137-145)
[2021-04-30] MEDS: METOPROLOL SUCCINATE EXT REL 12.5 MG TABCR PO (08:15)
[2021-04-30] MEDS: ASPIRIN 81 MG ENTERIC TABLET PO (08:16)
--- NOTE | 2021-04-30 08:55 | PCNWS ---
Weekly nutritional screen. Patient is tolerating current diet with adequate intake of 100% meal consumption. No weight loss reported. No nutritional needs at this time.
[2021-04-30] MEDS: SACUBITRIL/VALSARTAN 12-13 MG TABLET 1 TAB PO (10:08)
[2021-04-30] MEDS: SPIRONOLACTONE 12.5 MG TABLET PO (10:08)
--- NOTE | 2021-04-30 11:05 | PM.PNCARD ---
Progress Note: A&P Assessment and Plan (1) Cardiomyopathy: Code(s): I42.9 - Cardiomyopathy, unspecified Status: Acute Assessment and Plan: New diagnosis severe LV systolic dysfunction. Optimization of medical management limited due to relative hypotension. Will continue to optimize GDMT as an outpatient as BP tolerates. Discussed the potential for life-threatening arrhythmias due to his severely reduced EF. He has decided against a LifeVest. He understands the risks associated with declining LifeVest. (2) Congestive heart failure: Qualifiers: Heart failure chronicity: acute Heart failure type: unspecified Qualified Code(s): I50.9 - Heart failure, unspecified Code(s): I50.9 - Heart failure, unspecified Status: Acute Assessment and Plan: New onset severe LV systolic dysfunction EF 20-25% with akinesis of the apical septum, apical inferior, basal inferolateral and mid inferolateral wall. Blood pressure marginal, relatively hypotensive. He has bilateral lower extremity edema slightly worse on the right leg extending up to his thigh. In order to optimize diuresis, will discontinue metoprolol, spironolactone. Give 20mg IV furosemide x1, then 40mg oral furosemide b.i.d. Low-salt diet, intake and outputs to be monitored as well as daily weights. (3) Atrial flutter, paroxysmal: Code(s): I48.92 - Unspecified atrial flutter Status: Acute Assessment and Plan: New diagnosis, asymptomatic paroxysmal atrial flutter with variable AV block on telemetry and by 12 lead EKG. Continue systemic anticoagulation already initiated due to bilateral pulmonary emboli with Xarelto (4) Bilateral pulmonary embolism: Code(s): I26.99 - Other pulmonary embolism without acute cor pulmonale Status: Acute Assessment and Plan: Continue systemic anticoagulation without interruption. Discussed at length. Given multiple bilateral pulmonary emboli and stabilization medical therapy I do not feel it is in his best interest to interrupt anticoagulation on an acute basis to proceed with coronary angiography at this time. Transition to oral regimen PE dosing per hospitalist service. (5) Hypertension: Code(s): I10 - Essential (primary) hypertension Status: Acute Assessment and Plan: Persistent relative hypotension limiting aggressive medical optimization at this time. (6) Ascites: Qualifiers: Ascites type: other type Qualified Code(s): R18.8 - Other ascites Code(s): R18.8 - Other ascites Status: Acute Assessment and Plan: Secondary to heart failure status post paracentesis (7) Abnormal EKG: Code(s): R94.31 - Abnormal electrocardiogram [ECG] [EKG] Status: Acute Assessment and Plan: Concerning for previous inferior myocardial infarction. He will eventually need an ischemic evaluation depending on the above tests. Coronary angiography indeed advised with the above caveats. Subjective Date/time seen: 04/30/21 11:05 Date of [id number]/30/2021: No complaints today. Surprisingly, edema is slightly improved despite diuretics being held last night and this morning due to hypotension. Review of Systems Review of Systems: All systems reviewed & are unremarkable except as noted in HPI and below Constitutional: Constitutional: Denies fatigue, Denies headache(s) and Reports weakness Eyes: Eyes: Denies blurry vision ENT: Reports Normal hearing present, Denies headache(s) and Denies neck pain Cardiovascular: Cardiovascular: Denies chest pain, Reports leg edema, Reports dyspnea and Reports dyspnea on exertion Respiratory: Respiratory: Reports dyspnea and Reports dyspnea on exertion Gastrointestinal: Gastrointestinal: Reports bloating Genitourinary: Genitourinary: Denies dysuria Musculoskeletal: Musculoskeletal: Denies neck pain Integumentary/Breasts: Skin/Breast: Denies dry skin Neurologic: Re
[2021-04-30] MEDS: FUROSEMIDE INJ 40 MG/4 ML VIAL 20 MG IV PUSH (12:17)
[2021-04-30 21:31] LABS: LDH Pleural Fluid 43 U/L; Total Protein Pleural Fluid <3.0 g/dL
--- NOTE | 2021-05-12 18:36 | PM.DS ---
DS: Admitting Diagnosis Discharge Date 04/30/21 Admitting Diagnosis Lethargy, lower extremity swelling, shortness of breath DS: Discharge Diagnosis Discharge Diagnosis (1) Bilateral pulmonary embolism: Code(s): I26.99 - Other pulmonary embolism without acute cor pulmonale Status: Acute (2) Atrial flutter, paroxysmal: Code(s): I48.92 - Unspecified atrial flutter Status: Acute (3) Bilateral lower extremity edema: Code(s): R60.0 - Localized edema Status: Acute DS: Summary Hospital Course Hospital Course: Patient is a 71-year-old male who went to primary care on April 22 to review labs establish care, informed them that he was having lower extremity swelling slowly progressing over long time in addition to lethargy and dyspnea, was told to come to the emergency room. Seen by Cardiology, who noted he has likely new onset systolic congestive heart failure, metoprolol was started. Lasix was started. Symptoms improved. Echo showed heart failure with ejection fraction 20-25%. Entresto, Toprol, spironolactone. Patient also have found to have bilateral pulmonary emboli, and atrial fibrillation. He was started on anticoagulation. And discharged on anticoagulation as well. Discussed with him the importance of potentially having AICD, however he is adamantly against both this and the life vest as he would have to wear this all the time. Potentially interested in catheterization down the road, but had reaction years ago to contrast dye, unclear if this was true allergy, in any case he is willing to address possibility of having angiogram as an outpatient. Discharge with close Cardiology and primary care follow-up. Status at Discharge Functional status at discharge: uses cane/walker Time Spent with Patient Time attestation: Total time spent providing and/or coordinating discharge services: Time spent: Less than 30 minutes Exam Const: General: no acute distress Neck: Neck: no JVD Resp: Effort & Inspection: normal respiratory effort Auscultation: clear to auscultation bilaterally Cardio: Rate: regular rate Rhythm: regular rhythm GI: GI Palp: Yes Soft to palpation and No Tenderness to palpation present (GI) DS: Data Data Completed and Pending Completed studies during hospitalization: Pending at discharge 04/22/21 13:17 Cytology [PTH] Routine Cytology [PTH] Routine Labs on day of discharge: Preliminary micro results at discharge 04/22/21 13:40 Fungal Culture - Preliminary Pleural Fluid 04/22/21 13:40 Acid Fast Bacilli Culture - Preliminary Pleural Fluid Discharge Plan Discharge Attending physician on discharge: Dayne Guidry Consulting providers: Jonas Rodriguez ; Isamel Duran ; Estefania Ruff ; Mau Klein ; Demetrius Jacinto ; Neftali German ; Richard Gan ; Crystal Jhaveri ; Mikhail Muir V. ; Elias Bui Discharging Clinician: Dayne Guidry Anticipated Discharge Date/Time: 04/30/21 13:20 Patient Disposition: Home, Self-Care Activity: no shower, no straining and no driving Diet: as tolerated, heart healthy, low fat and low fiber Discharge Instructions: start with entresto bid Pt has neighbor who is ex-nurse and can take his BP - advised to take blood pressure every day or so. Close followup with cardiology for final regimen Told he can reconsider AICD and LifeVest anytime and discuss with either PCP or cardiology. Patient Instructions: Antibiotic Form, Metoprolol (By mouth), Aspirin (By mouth), Enoxaparin (By injection), Rivaroxaban (By mouth), Heart Failure (DC), Ascites (DC) Stand Alone Forms: General Discharge Information Follow-up/Referrals: Crystal Jhaveri, DIRECTOR [facility] [Advanced Practice Nurse] - (05/19/21 at 3:00. Please arrive at 2:50. ) Biju Severino DO [Primary Care Provider] - Call for Appointment Discharge Medications: New furosemide 40 mg tablet 40 mg PO BID Qty: 60 RF: 3 Discontinued f
== END 2021-04-30 14:25 | disposition home or self-care (01) | DRG 194 ==
LOC: ANHED 13:06 → ANH2MED 21:23
PROVIDERS: Internal Medicine; Internal Medicine Cardiovascular Disease; Nurse Practitioner; Admitting Provider Internal Medicine; Emergency Provider Family Medicine; PCP Internal Medicine; Visit Provider Internal Medicine
DX: I11.0 Hypertensive heart disease with heart failure (principal); R18.8 Other ascites; I50.21 Acute systolic (congestive) heart failure; J90 Pleural effusion, not elsewhere classified; K74.60 Unspecified cirrhosis of liver; I26.99 Other pulmonary embolism without acute cor pulmonale; I25.10 Atherosclerotic heart disease of native coronary artery without angina pectoris; I48.92 Unspecified atrial flutter; I42.0 Dilated cardiomyopathy
CPT/HCPCS: 32555; 36415; 49083; 71045; 71046; 71275; 74176; 76705; 78580; 80048; 80053; 80074; 82040; 82042; 82150; 82247; 82465; 82728; 82945; 82977; 83605; 83615; 83690; 83735; 83880; 83986; 84100; 84157; 84311; 84443; 84478; 84484; 85025; 85055; 85380; 85610; 85730; 87015; 87070; 87075; 87102; 87116; 87205; 87206; 88104; 88108; 88184; 88305; 89051; 93005; 93970; 96372; 96374; 96376; 97161; 97165; 99285; A9270; A9540; C8929; G0378; G0379; J1200; J1650; J1940; J7512; Q9957; Q9967

== ENCOUNTER 2021-07-02 11:12 | Observation (INO) | payer SELFPAY ==
[2021-07-02] VITALS (8 sets, daily range): BP systolic 113–151; BP diastolic 92–102; PULSE 94–98; RESP 15–20; TEMP 36–36.2; O2SAT 99–100; BMI 29.5
--- NOTE | ~2021-07-02 | US_ITS ---
EXAMINATION: US paracentesis abd w/image DATE: 07/04/2021 12:12 INDICATION: Ascites. TECHNIQUE: The procedure and its risks, benefits, and alternatives were discussed with the patient. P otential risks discussed included bleeding and infection. The skin was prepped and draped in sterile fashion. 1% lidocaine was used for local anesthesia. Under ultrasound guidance, a 5 Fr catheter with trochar was advanced into the ascites in the right lower quadrant. Fluid was aspirated. The catheter was removed, and a dressing was applied. There were no immediate complications. FINDINGS: Ultrasound images demonstrate ascites and the catheter within the fluid. IMPRESSION: 1. Successful ultrasound-guided paracentesis yielding 3800 mL of red fluid. Reviewed, dictated and finalized at location A. BOARDER
--- NOTE | ~2021-07-02 | US_ITS ---
EXAMINATION: US paracentesis abd w/image DATE: 07/03/2021 12:14 INDICATION: Ascites. TECHNIQUE: The procedure and its risks, benefits, and alternatives were discussed with the patient. P otential risks discussed included bleeding and infection. The skin was prepped and draped in sterile fashion. 1% lidocaine was used for local anesthesia. Under ultrasound guidance, a 5 Fr catheter with trochar was advanced into the ascites in the right lower quadrant. Fluid was aspirated. The catheter was removed, and a dressing was applied. There were no immediate complications. FINDINGS: Ultrasound images demonstrate ascites and the catheter within the fluid. IMPRESSION: 1. Successful ultrasound-guided paracentesis yielding 5000 mL of red fluid. Reviewed, dictated and finalized at location A. SM SPECIALIST
--- NOTE | ~2021-07-02 | XR_ITS ---
XR chest 1V portable DATE: 07/02/2021 19:49 INDICATION: Abdominal swelling. Congestive heart failure. TECHNIQUE: Portable upright AP chest on 07/02/2021 at 1933 hours COMPARISON: 04/24/2021 PA and lateral chest FINDINGS: There is enlargement of cardiac silhouette, likely due to cardiomegaly. Pericardial effusio n is not excluded. There is moderate right and possible minimal left pleural effusion. There is right mid and lower lung and left retrocardiac lower lobe infiltrate/atelectasis. No pneumothorax is evident. Diffuse osteopenia. Osteoarthritic change at the glenohumeral joints. Right rotator cuff atrophy. IMPRESSION: Bilateral infiltrate or atelectasis, right greater than left, increased since 05/04/2021 Moderate right pleural effusion Cardiomegaly Reviewed, dictated and finalized at location A. IFIED WELLNESS PROGRAM MANAGER IMPRESSION: Bilateral infiltrate or atelectasis, right greater than left, incre ased since 05/04/2021 Moderate right pleural effusion Cardiomegaly
[2021-07-02 18:31] LABS: Basophils Absolute Auto 0.1 K/mm3 (0.0-0.1); Basophils Percent Auto 0.7 % (0.2-1.2); Eosinophils Percent Auto 0.5 % (0-4.4); Hematocrit 43.4 % (42.0-52.0); Hemoglobin 14.8 g/dL (14.0-18.0); Immature Granulocyte Absolute 0.02 K/mm3 (0.00-0.031); Immature Granulocyte Percent A 0.3 % (0-0.5); Lymphocytes Absolute Auto 0.71 K/mm3 (0.9-3.2); Lymphocytes Percent Auto 9.5 % (18.3-44.2); Mean Corpuscular HGB Conc 34.1 g/dl (32-36); Mean Corpuscular Hemoglobin 33.9 pg (26-34); Mean Corpuscular Volume 99.5 fl (80-100); Mean Platelet Volume 10.6 fl (7.4-10.4); Monocytes Absolute Auto 0.9 K/mm3 (0.1-0.6); Monocytes Percent Auto 12.4 % (2.6-8.5); Neutrophils Absolute Auto 5.8 K/mm3 (1.3-6.7); Neutrophils Percent Auto 76.6 % (45.5-73.1); Platelet Count Result 150 k/mm3 (150-375); Red Blood Count 4.36 M/mm3 (4.6-6.20); Red Cell Distribution Width 15.9 % (11.5-14.5); White Blood Count 7.5 K/mm3 (4.5-10.0)
[2021-07-02 18:34] LABS: Ammonia < 9 umol/L (9-30)
[2021-07-02 18:55] LABS: INR 1.1; Partial Thromboplastin Time 29.5 SECONDS (22.3-36.8); Prothrombin Time 14.3 Seconds (11.1-14.7)
--- NOTE | 2021-07-02 19:00 | PC.NURSE ---
Assuming care of pt.
--- NOTE | 2021-07-02 19:18 | ED.GENADULT ---
HPI - General Adult General Chief complaint: Unspecified <Taniya Theodore MD - Last Filed: 07/02/21 19:29> Stated complaint: ASCITES <Taniya Theodore MD - Last Filed: 07/02/21 19:29> Time Seen by Provider: 07/02/21 17:31 <Taniya Theodore MD - Last Filed: 07/02/21 19:29> Source: patient <Taniya Theodore MD - Last Filed: 07/02/21 19:29> Mode of arrival: ambulatory <Taniya Theodore MD - Last Filed: 07/02/21 19:29> Limitations: no limitations <Taniya Theodore MD - Last Filed: 07/02/21 19:29> History of Present Illness HPI narrative: This is a 71 year old male with history of CHF, atrial fibrillation, cirrhosis with ascites who presents for evaluation of abdominal swelling. Patient reports he was admitted 2 months ago for ascites and he had a paracentesis. He did not follow up after discharge . He has come in today because he has increasing swelling to his abdomen, and he wants paracentesis. He state it is causing him shortness of breath. He denies abdominal pain, chest pain, nausea, vomiting or fever. He states he stopped going to Dr. Severino because he did not agree with a medication that has been prescribed. He was unable to afford Xarelto . He is unsure why he was placed on medication. He has bilateral leg swelling as well. <Taniya Theodore MD - Last Filed: 07/02/21 19:29> Related Data Home medications: Home Medications Medication Instructions Recorded Confirmed coenzyme Q10 300 mg capsule 300 mg PO DAILY 05/10/21 05/10/21 levocarnitine 500 mg tablet 500 mg PO ONCE 05/10/21 05/10/21 magnesium oxide 400 mg (241.3 mg 400 mg PO DAILY 05/10/21 05/10/21 magnesium) tablet omega-3 fatty acids 1,000 mg 1,000 mg PO DAILY 05/10/21 05/10/21 capsule ribose 20 kcal/5 gram oral powder kcal PO 05/10/21 05/10/21 vit B6-mag cit,ox-potassium cit tablet PO 05/10/21 05/10/21 3.75 mg-45 mg-45 mg-49.5 mg tablet ER <Taniya Theodore MD - Last Filed: 07/02/21 19:29> Allergies/adverse reactions: Allergies Allergy/AdvReac Type Severity Reaction Status Date / Time Iodinated Contrast Media Allergy Hypertensio Verified 04/22/21 10:56 n <Taniya Theodore MD - Last Filed: 07/02/21 19:29> Review of Systems Review of Systems: All systems reviewed & are unremarkable except as noted in HPI and below <Taniya Theodore MD - Last Filed: 07/02/21 19:29> PMFSH Past Medical History Medical History: Medical History (Updated 07/02/21 @ 21:12 by Luis Dixon MD) Allergies Atrial flutter, paroxysmal Bilateral pulmonary embolism Cirrhosis Congestive heart failure Hypertension <Taniya Theodore MD - Last Filed: 07/02/21 19:29> Surgical History Surgical History: Surgical History H/O hernia repair (2) <Taniya Theodore MD - Last Filed: 07/02/21 19:29> Family History Family History: Family History Father Cancer Bladder cancer Diabetes mellitus Mother Cancer Breast cancer Heart disease Sibling Carcinoma of colon Grandparent Cancer <Taniya Theodore MD - Last Filed: 07/02/21 19:29> Social History Social History: Social History Social History: The patient lives home alone and his brother visits him a most every day. He is single never and does not have any children. 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 Lifelong nonsmoker. Does not use any alcohol marijuana or illicit drugs. Smoking status: Never smoker Alcohol intake: never Substance use: never Spiritual care concerns: No <Taniya Theodore MD - Last Filed: 07/02/21 19:29> Exam Narrative: GENERAL: Well-appearing, well-nourished, and in no acute distress. HEAD: Normocephalic, atraumatic EYES: PERRLA and EOMI, conjunctiva
[2021-07-02 19:25] LABS: Add Urine Microscopic? YES; Appearance Urine Cloudy (Clear); Bacteria Urine Trace /hpf; Bilirubin Urine Negative (Negative); Blood Urine Negative (Negative); Color Urine Amber (Yellow); Glucose Urine UA Negative (Negative); Hyaline Casts Urine 20-29 /lpf; Ketones Urine Negative (Negative); Leukocyte Esterase Ur Negative LEU/UL (Negative); Mucus Urine Rare /lpf; Nitrate Urine Negative (Negative); Protein Urine 1+ mg/dL (Negative); Urobilinogen Urine Negative mg/dL (<2.0)
[2021-07-02 19:52] LABS: Alanine Aminotransferase 15 U/L (4-50); Albumin Level 3.3 g/dL (3.5-5.1); Alkaline Phosphatase 107 U/L (38-126); Anion Gap 8 mmol/L (8-16); Aspartate Amino Transferase 33 U/L (17-59); Bilirubin,Total 1.5 mg/dL (0.2-1.3); Blood Urea Nitrogen 32 mg/dL (9-20); Calcium 8.1 mg/dL (8.4-10.2); Carbon Dioxide 24 mmol/L (22-30); Chloride 107 mmol/L (98-107); Estimated CRCL calculation 61 ml/min; Estimated Glomerular Filt Rate > 60; Glucose 106 mg/dL (65-110); Potassium 3.1 mmol/L (3.4-5.0); Sodium 139 mmol/L (137-145)
[2021-07-02 20:01] LABS: NT Pro B Type Natriuretic Pept 23000 pg/mL (5-100)
--- NOTE | 2021-07-02 22:34 | ADMGEN ---
This patient, Biju Gimenez, was admitted to Medical Room 349-01. Patient/family oriented to hospital policies and general routines including ID bracelet, bed and alarms, visiting hours, pain management, procedures, bathroom and other care routines, personal items, smoking policy, room service/diet, and visiting hours. Information on how to activate the Rapid Response Team has been discussed. Patient/Family are encouraged to report perceived risks to care and to ask questions if they do not understand what they are told or what they should do.
--- NOTE | 2021-07-03 04:48 | PM.IMHP ---
H&P: HPI History of Present Illness Date/Time: 07/03/21 04:48 Chief Complaint: Ascites Narrative: This is a 71 year old male with history of CHF, atrial fibrillation, cirrhosis with ascites who presents for evaluation of abdominal swelling which has been progressively getting worse. He was admitted 2 months ago and had a paracentesis at the time has not followed up since then. He states that he is following a doctor was written a book about nutrition and benefits for for the heart and has been following his recommendations. He also has stop the Xarelto which he was prescribed for his pulmonary embolism that diagnosed at that time and is taking some herbal blood thinner from [place] that was suggested in that book as well. He reports has increased leg swelling as well. He denies any abdominal pain chest pain nausea vomiting cough shortness of breath fever chills. Review of Systems Review of Systems: - CONSTITUTIONAL: Denies weight loss, fever and chills. - HEENT: Denies changes in vision and hearing - RESPIRATORY: Denies SOB and cough. - CV: Denies palpitations and CP. - GI: Denies abdominal pain, nausea, vomiting and diarrhea. - : Denies dysuria and urinary frequency. - MSK: Denies myalgia and joint pain. - SKIN: Denies rash and pruritus. - NEUROLOGICAL: Denies headache and syncope. - PSYCHIATRIC: Denies recent changes in mood. Denies anxiety and depression. All systems reviewed & are unremarkable except as noted in HPI and below Constitutional: Constitutional: Reports fatigue and Reports weakness Neurologic: Reports weakness Endocrine: Endocrine: Reports fatigue [facility] Past Medical History Medical History (Updated 07/02/21 @ 21:12 by Luis Dixon MD) Allergies Atrial flutter, paroxysmal Bilateral pulmonary embolism Cirrhosis Congestive heart failure Hypertension Surgical History Surgical History H/O hernia repair (2) Family History Family History Father Cancer Bladder cancer Diabetes mellitus Mother Cancer Breast cancer Heart disease Sibling Carcinoma of colon Grandparent Cancer Social History Social History Social History: The patient lives home alone and his brother visits him a most every day. He is single never and does not have any children. 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 Lifelong nonsmoker. Does not use any alcohol marijuana or illicit drugs. Smoking status: Never smoker Alcohol intake: never Substance use: never Spiritual care concerns: No Meds Home Medications and Allergies Home Medications Medication Instructions Recorded Confirmed Type furosemide 40 mg PO BID #60 tablet 04/29/21 07/02/21 Rx coenzyme Q10 300 mg capsule 300 mg PO DAILY 05/10/21 07/02/21 History levocarnitine 500 mg tablet 500 mg PO ONCE 05/10/21 07/02/21 History magnesium oxide 400 mg (241.3 mg 400 mg PO DAILY 05/10/21 07/02/21 History magnesium) tablet omega-3 fatty acids 1,000 mg 1,000 mg PO DAILY 05/10/21 07/02/21 History capsule ribose 20 kcal/5 gram oral powder 20 kcal PO DAILY 05/10/21 07/02/21 History vit B6-mag cit,ox-potassium cit 3.75 tablet PO DAILY 05/10/21 07/02/21 History 3.75 mg-45 mg-45 mg-49.5 mg tablet ER Allergies Allergy/AdvReac Type Severity Reaction Status Date / Time Iodinated Contrast Media Allergy Hypertensio Verified 07/02/21 23:05 n Vital Signs Vital Signs - 24 hr 07/02/21 11:26 07/02/21 18:39 07/02/21 20:15 Temperature 96.8 F L Pulse Rate 98 94 96 Respiratory Rate 20 16 19 Blood Pressure 151/100 H 118/97 H 122/102 H Pulse Oximetry 100 99 99 07/02/21 20:30 07/02/21 22:04 07/02/21 22:17 Temperature Pulse Rate 98 97 Respiratory Rate 15 18 18 Blood Pressure 114/98 H 113/99 H
--- NOTE | 2021-07-03 04:59 | ECG_ITS ---
Measurements Intervals [place] Rate: 70 P: NM: 0 QRS: -74 QRSD: 134 T: 93 QT: 435 QTc: 471 Interpretive Statements ATRIAL FIBRILLATION VENTRICULAR PREMATURE COMPLEXES LEFT AXIS DEVIATION LEFT BUNDLE BRANCH BLOCK LOW VOLTAGE- LIMB LEADS ABNORMAL ECG Electronically Signed On 07-03-2021 12:11:26 [employer]ESSER by Neftali German D.O.
[2021-07-03 06:00] VITALS: BP 117/74; PULSE 69; RESP 18; TEMP 36.2; O2SAT 97
[2021-07-03] MEDS: FUROSEMIDE 40 MG TABLET PO ×2 (12:19→16:54)
[2021-07-03] MEDS: MAGNESIUM OXIDE 400 MG TABLET PO (12:19)
[2021-07-03] MEDS: OMEGA 3 POLYUNSAT FATTY ACIDS 1 GM CAP PO (12:19)
[2021-07-03 14:00] VITALS: BP 104/72; PULSE 94; RESP 20; TEMP 36.6; O2SAT 98
[2021-07-03 16:01] LABS: INR 1.2; Prothrombin Time 14.6 Seconds (11.1-14.7)
[2021-07-03 20:00] VITALS: PULSE 99; RESP 20; O2SAT 98
[2021-07-03 22:00] VITALS: BP 102/85; PULSE 99; RESP 20; TEMP 36.8; O2SAT 98
--- NOTE | 2021-07-04 05:58 | PC.NURSE ---
PT CONTINUES TO LEAK FLUID FROM PUNCTURE SITE AFTER PARACENTESIS. REDRESSED WITH 2X2 GAUZE AND TAPE. 0600 PT LEAKED THROUGH 2X2 GAUZE SO I DECIDED TO REDRESS WITH 4X4 GAUZE A PRESSURE DRESSING WITH MEDIPORE TAPE.
[2021-07-04 06:00] VITALS: BP 107/74; PULSE 63; RESP 20; TEMP 36.3; O2SAT 98
[2021-07-04 06:29] LABS: INR 1.2; Prothrombin Time 14.9 Seconds (11.1-14.7)
--- NOTE | 2021-07-04 11:26 | PM.DS ---
DS: Admitting Diagnosis Discharge Date 07/04/21 Admitting Diagnosis (1) Congestive heart failure: Qualifiers: Heart failure chronicity: acute Heart failure type: unspecified Qualified Code(s): I50.9 - Heart failure, unspecified Code(s): I50.9 - Heart failure, unspecified Status: Acute (2) Bilateral pulmonary embolism: Code(s): I26.99 - Other pulmonary embolism without acute cor pulmonale Status: Acute (3) Cirrhosis: Qualifiers: Ascites presence: with ascites Hepatic cirrhosis type: unspecified hepatic cirrhosis Qualified Code(s): K74.60 - Unspecified cirrhosis of liver; R18.8 - Other ascites Code(s): K74.60 - Unspecified cirrhosis of liver Status: Acute (4) Atrial flutter, paroxysmal: Code(s): I48.92 - Unspecified atrial flutter Status: Acute (5) Bilateral lower extremity edema: Code(s): R60.0 - Localized edema Status: Acute (6) Cardiomyopathy: Code(s): I42.9 - Cardiomyopathy, unspecified Status: Acute (7) Ascites: Qualifiers: Ascites type: other type Qualified Code(s): R18.8 - Other ascites Code(s): R18.8 - Other ascites Status: Acute (8) Hypertension: Code(s): I10 - Essential (primary) hypertension Status: Acute DS: Discharge Diagnosis Discharge Diagnosis (1) Ascites: Qualifiers: Ascites type: other type Qualified Code(s): R18.8 - Other ascites Code(s): R18.8 - Other ascites Status: Acute (2) Cirrhosis: Qualifiers: Ascites presence: with ascites Hepatic cirrhosis type: unspecified hepatic cirrhosis Qualified Code(s): K74.60 - Unspecified cirrhosis of liver; R18.8 - Other ascites Code(s): K74.60 - Unspecified cirrhosis of liver Status: Acute (3) Bilateral pulmonary embolism: Code(s): I26.99 - Other pulmonary embolism without acute cor pulmonale Status: Acute (4) Atrial flutter, paroxysmal: Code(s): I48.92 - Unspecified atrial flutter Status: Acute (5) Cardiomyopathy: Code(s): I42.9 - Cardiomyopathy, unspecified Status: Acute (6) Combined systolic and diastolic congestive heart failure: Code(s): I50.40 - Unspecified combined systolic (congestive) and diastolic (congestive) heart failure Status: Acute DS: Summary Hospital Course Reason for hospitalization: ascites w scrotal edema Hospital Course: 71-year-old male diagnosed with Bilateral PEs, cirrhosis, and combined systolic diastolic heart failure and April of 2021 provided multiple medications and has been noncompliant with all of them. patient Presented with significant scrotal swelling and ascites. He had paracentesis with removal of 5 liters at the time of admission. 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 he declines current medical therapy for his cardiac HF PEs and cirrhosis and is trying to use herbal remedies. I have re-prescribed all of these classes of medication and pt will need INR monitoring if decides to be compliant. . Status at Discharge Functional status at discharge: independent ambulation Overall status at discharge: patient is back to baseline Time Spent with Patient Time attestation: Total time spent providing and/or coordinating discharge services: Time spent: Less than 30 minutes Exam Narrative: GENERAL: Well-appearing, well-nourished, and in no acute distress. HEAD: Normocephalic, atraumatic EYES: EOMI, conjunctiva clear without discharge NECK: Supple, without lymphadenopathy or mass RESPIRATORY: No respiratory distress, Airway patent, Respirations non-labored Abdomen soft distended umbilical hernia noted EXTREMITIES: bilateral leg edema, normal strength with full range of motion. SKIN: Warm, dry, normal color without rash NEURO: Alert and oriented x3. CN 2-12 grossly intact. No f
[2021-07-04] MEDS: OMEGA 3 POLYUNSAT FATTY ACIDS 1 GM CAP PO (13:12)
[2021-07-04] MEDS: FUROSEMIDE 40 MG TABLET PO (13:12)
[2021-07-04] MEDS: MAGNESIUM OXIDE 400 MG TABLET PO (13:12)
== END 2021-07-04 17:00 | disposition home or self-care (01) ==
LOC: ANHED 21:12 → ANH3MED 07-04 11:23
PROVIDERS: Admitting Provider Internal Medicine; Emergency Provider General Practice; Visit Provider Hospitalist
DX: R18.8 Other ascites (principal); K74.60 Unspecified cirrhosis of liver; I11.0 Hypertensive heart disease with heart failure; I50.20 Unspecified systolic (congestive) heart failure; I48.91 Unspecified atrial fibrillation; I42.9 Cardiomyopathy, unspecified; Z86.711 Personal history of pulmonary embolism; Z91.14 Patient's other noncompliance with medication regimen
CPT/HCPCS: 36415; 49083; 71045; 80053; 81001; 82140; 83880; 85025; 85610; 85730; 93005; 99285; A9270; G0378; G0379